=== PATIENT | female | born 1945 | race Caucasian/White ===

== ENCOUNTER → 2016-10-16 | Outpatient (CLI) | payer MEDICARE, MEDICAID ==
[~2016-10-16] MED LIST: ALLO100T OR; AMLO5TAB2 OR; ETAN25IN3 SC; FERR324T11 OR; FOLI5CAP OR; NITR50CA34 OR
[2016-10-16 09:54] LABS: Basophils # (auto) 0.1 uL; Basophils % (auto) 1.1 % (0.0-2.0); Eosinophils # (auto) 0.3 uL; Eosinophils % (auto) 3.7 % (0.0-7.0); Hematocrit 38.3 % (36.0-46.0); Hemoglobin 12.7 g/dL (12.2-16.2); Lymphocytes # (auto) 1.9 uL; Lymphocytes % (auto) 24.9 % (10.0-50.0); Mean Corpuscular Hemoglobin 29.4 pg (28.0-32.0); Mean Corpuscular Hgb Conc. 33.2 g/dL (32.0-36.0); Mean Corpuscular Volume 88.3 fL (80.0-100.0); Mean Platelet Volume 9.4 fL (7.4-10.4); Monocytes # (auto) 0.9 uL; Monocytes % (auto) 11.7 % (0.0-12.0); Neutrophils # (auto) 4.5 uL; Neutrophils % (auto) 58.6 % (37.0-80.0); Platelet Count (auto) 249 10^3/uL (140-450); Red Cell Distribution Width 13.8 % (11.6-16.0); White Blood Cell 7.7 10^3/uL (4.4-10.8)
[2016-10-16 10:10] LABS: Albumin 3.8 g/dL (3.4-5.0); BUN/Creatinine Ratio 25.2; Bilirubin, Total 0.4 mg/dL (0.2-1.0); Calcium 9.2 mg/dL (8.5-10.1); Potassium 3.9 mmol/L (3.5-5.1); Total Protein 7.1 g/dL (6.4-8.2)
== END | disposition home or self-care (01) ==
LOC: LAB 09:27
DX: M06.9 Rheumatoid arthritis, unspecified (principal); N18.3 Chronic kidney disease, stage 3 (moderate); M25.50 Pain in unspecified joint; Z79.899 Other long term (current) drug therapy; I10 Essential (primary) hypertension
CPT/HCPCS: 36415; 80053; 85025; 85652; 86141

== ENCOUNTER → 2016-12-18 | Outpatient (CLI) | payer MEDICARE, MEDICAID ==
[2016-12-18 10:40] LABS: Basophils # (auto) 0 uL; Basophils % (auto) 0.4 % (0.0-2.0); Eosinophils # (auto) 0.3 uL; Eosinophils % (auto) 3.4 % (0.0-7.0); Hematocrit 38.9 % (36.0-46.0); Hemoglobin 12.7 g/dL (12.2-16.2); Lymphocytes # (auto) 1.6 uL; Lymphocytes % (auto) 15.9 % (10.0-50.0); Mean Corpuscular Hemoglobin 29.1 pg (28.0-32.0); Mean Corpuscular Hgb Conc. 32.7 g/dL (32.0-36.0); Mean Platelet Volume 8.8 fL (7.4-10.4); Monocytes # (auto) 1.1 uL; Monocytes % (auto) 10.4 % (0.0-12.0); Neutrophils # (auto) 7.1 uL; Neutrophils % (auto) 69.9 % (37.0-80.0); Platelet Count (auto) 253 10^3/uL (140-450); Red Cell Distribution Width 14.3 % (11.6-16.0); White Blood Cell 10.1 10^3/uL (4.4-10.8)
[2016-12-18 11:11] LABS: Albumin 3.6 g/dL (3.4-5.0); BUN/Creatinine Ratio 19.7; Bilirubin, Total 0.7 mg/dL (0.2-1.0); Potassium 3.6 mmol/L (3.5-5.1); Total Protein 7.2 g/dL (6.4-8.2)
== END | disposition home or self-care (01) ==
LOC: LAB 09:15
DX: M06.9 Rheumatoid arthritis, unspecified (principal); I10 Essential (primary) hypertension; M25.50 Pain in unspecified joint; D64.9 Anemia, unspecified; Z79.899 Other long term (current) drug therapy
CPT/HCPCS: 36415; 80053; 85025; 85652; 86141

== ENCOUNTER → 2017-02-26 | Outpatient (CLI) | payer MEDICARE, MEDICAID ==
[2017-02-26 11:30] LABS: Basophils # (auto) 0.1 uL; Basophils % (auto) 0.5 % (0.0-2.0); CONDITION Y; Eosinophils # (auto) 0.2 uL; Eosinophils % (auto) 1.9 % (0.0-7.0); Hematocrit 37.5 % (36.0-46.0); Hemoglobin 12.5 g/dL (12.2-16.2); Lymphocytes # (auto) 1.4 uL; Lymphocytes % (auto) 12.2 % (10.0-50.0); Mean Corpuscular Hemoglobin 30.4 pg (28.0-32.0); Mean Corpuscular Hgb Conc. 33.2 g/dL (32.0-36.0); Mean Corpuscular Volume 91.4 fL (80.0-100.0); Mean Platelet Volume 9.3 fL (7.4-10.4); Monocytes # (auto) 0.9 uL; Monocytes % (auto) 7.5 % (0.0-12.0); Neutrophils # (auto) 8.9 uL; Neutrophils % (auto) 77.9 % (37.0-80.0); Platelet Count (auto) 226 10^3/uL (140-450); Red Cell Distribution Width 13.7 % (11.6-16.0); White Blood Cell 11.4 10^3/uL (4.4-10.8)
[2017-02-26 11:55] LABS: Albumin 3.6 g/dL (3.4-5.0); BUN/Creatinine Ratio 15.2; Bilirubin, Total 0.5 mg/dL (0.2-1.0); Calcium 8.7 mg/dL (8.5-10.1); Potassium 3.4 mmol/L (3.5-5.1); Total Protein 6.6 g/dL (6.4-8.2)
== END | disposition home or self-care (01) ==
LOC: LAB 11:01
DX: I10 Essential (primary) hypertension (principal); M06.9 Rheumatoid arthritis, unspecified; D64.9 Anemia, unspecified; M25.60 Stiffness of unspecified joint, not elsewhere classified; Z79.899 Other long term (current) drug therapy
CPT/HCPCS: 36415; 80053; 85025; 86141

== ENCOUNTER → 2017-04-29 | Outpatient (CLI) | payer MEDICARE, MEDICAID ==
[2017-04-29 11:49] LABS: Basophils # (auto) 0.1 uL; Basophils % (auto) 0.6 % (0.0-2.0); Eosinophils # (auto) 0.2 uL; Eosinophils % (auto) 1.3 % (0.0-7.0); Hematocrit 37.9 % (36.0-46.0); Hemoglobin 12.6 g/dL (12.2-16.2); Lymphocytes # (auto) 1.3 uL; Mean Corpuscular Hemoglobin 29.9 pg (28.0-32.0); Mean Corpuscular Hgb Conc. 33.2 g/dL (32.0-36.0); Mean Corpuscular Volume 90.1 fL (80.0-100.0); Mean Platelet Volume 8.9 fL (7.4-10.4); Monocytes # (auto) 0.9 uL; Monocytes % (auto) 6.8 % (0.0-12.0); Neutrophils # (auto) 10.6 uL; Neutrophils % (auto) 81.3 % (37.0-80.0); Platelet Count (auto) 220 10^3/uL (140-450); Red Cell Distribution Width 13.3 % (11.6-16.0)
[2017-04-29 12:05] LABS: Albumin 3.6 g/dL (3.4-5.0); Bilirubin, Total 0.3 mg/dL (0.2-1.0); Calcium 9.2 mg/dL (8.5-10.1); Total Protein 7.3 g/dL (6.4-8.2)
== END | disposition home or self-care (01) ==
LOC: LAB 11:24
DX: M06.9 Rheumatoid arthritis, unspecified (principal); M25.50 Pain in unspecified joint; D64.9 Anemia, unspecified; I10 Essential (primary) hypertension; Z79.899 Other long term (current) drug therapy
CPT/HCPCS: 36415; 80053; 85025; 85652; 86141

== ENCOUNTER → 2017-07-01 | Outpatient (CLI) | payer MEDICARE, MEDICAID ==
[2017-07-01 09:59] LABS: Basophils # (auto) 0.1 uL; Basophils % (auto) 0.9 % (0.0-2.0); Eosinophils # (auto) 0.4 uL; Eosinophils % (auto) 4.1 % (0.0-7.0); Hematocrit 38.1 % (36.0-46.0); Hemoglobin 12.7 g/dL (12.2-16.2); Lymphocytes # (auto) 2.3 uL; Lymphocytes % (auto) 26.5 % (10.0-50.0); Mean Corpuscular Hemoglobin 29.8 pg (28.0-32.0); Mean Corpuscular Hgb Conc. 33.3 g/dL (32.0-36.0); Mean Corpuscular Volume 89.7 fL (80.0-100.0); Mean Platelet Volume 9.1 fL (6.9-10.8); Monocytes % (auto) 11.8 % (0.0-12.0); Neutrophils # (auto) 4.9 uL; Neutrophils % (auto) 56.7 % (37.0-80.0); Nucleated Red Blood Cells % 0.1 %; Platelet Count (auto) 245 10^3/uL (140-450); Red Cell Distribution Width 14.8 % (11.8-14.3); White Blood Cell 8.7 10^3/uL (4.4-10.8)
[2017-07-01 10:19] LABS: Albumin 3.7 g/dL (3.4-5.0); BUN/Creatinine Ratio 19.7; Bilirubin, Total 0.3 mg/dL (0.2-1.0); Calcium 9.2 mg/dL (8.5-10.1); Potassium 3.6 mmol/L (3.5-5.1); Total Protein 7.1 g/dL (6.4-8.2)
== END | disposition home or self-care (01) ==
LOC: LAB 09:35
DX: I10 Essential (primary) hypertension (principal); M06.9 Rheumatoid arthritis, unspecified; I70.0 Atherosclerosis of aorta; D64.9 Anemia, unspecified; E78.00 Pure hypercholesterolemia, unspecified; Z79.899 Other long term (current) drug therapy
CPT/HCPCS: 36415; 80053; 85025; 85652; 86141

== ENCOUNTER → 2017-09-02 | Outpatient (CLI) | payer MEDICARE, MEDICAID ==
[2017-09-02 09:30] LABS: Basophils # (auto) 0.1 uL; Basophils % (auto) 0.6 % (0.0-2.0); Eosinophils # (auto) 0.3 uL; Eosinophils % (auto) 3.2 % (0.0-7.0); Hematocrit 36.6 % (36.0-46.0); Hemoglobin 12.1 g/dL (12.2-16.2); Lymphocytes # (auto) 2.2 uL; Lymphocytes % (auto) 22.9 % (10.0-50.0); Mean Corpuscular Hemoglobin 29.6 pg (28.0-32.0); Mean Corpuscular Hgb Conc. 33.1 g/dL (32.0-36.0); Mean Corpuscular Volume 89.5 fL (80.0-100.0); Monocytes # (auto) 1.1 uL; Monocytes % (auto) 10.9 % (0.0-12.0); Neutrophils # (auto) 6.1 uL; Neutrophils % (auto) 62.4 % (37.0-80.0); Platelet Count (auto) 280 10^3/uL (140-450); Red Blood Cells 4.08 10^6/uL (4.0-5.20); Red Cell Distribution Width 13.5 % (11.8-14.3); White Blood Cell 9.8 10^3/uL (4.4-10.8)
[2017-09-02 09:53] LABS: Albumin 3.5 g/dL (3.4-5.0); BUN/Creatinine Ratio 15.9; Bilirubin, Total 0.4 mg/dL (0.2-1.0); Calcium 8.7 mg/dL (8.5-10.1); Potassium 3.8 mmol/L (3.5-5.1); Total Protein 6.9 g/dL (6.4-8.2)
== END | disposition home or self-care (01) ==
LOC: LAB 09:14
PROVIDERS: ATTEND Internal Medicine
DX: M05.9 Rheumatoid arthritis with rheumatoid factor, unspecified (principal)
CPT/HCPCS: 36415; 80053; 85025; 85652

== ENCOUNTER → 2017-10-29 | Outpatient (CLI) | payer MEDICARE, MEDICAID ==
[2017-10-29 11:11] LABS: Basophils # (auto) 0 uL; Basophils % (auto) 0.6 % (0.0-2.0); Eosinophils # (auto) 0.2 uL; Hematocrit 39.2 % (36.0-46.0); Hemoglobin 12.7 g/dL (12.2-16.2); Lymphocytes # (auto) 1.4 uL; Lymphocytes % (auto) 16.8 % (10.0-50.0); Mean Corpuscular Hemoglobin 28.4 pg (28.0-32.0); Mean Corpuscular Hgb Conc. 32.5 g/dL (32.0-36.0); Mean Corpuscular Volume 87.3 fL (80.0-100.0); Monocytes # (auto) 0.8 uL; Monocytes % (auto) 10.3 % (0.0-12.0); Neutrophils # (auto) 5.8 uL; Neutrophils % (auto) 70.3 % (37.0-80.0); Nucleated Red Blood Cells % 0.2 %; Platelet Count (auto) 254 10^3/uL (140-450); Red Blood Cells 4.49 10^6/uL (4.0-5.20); Red Cell Distribution Width 14.5 % (11.8-14.3); White Blood Cell 8.2 10^3/uL (4.4-10.8)
[2017-10-29 11:23] LABS: Albumin 3.6 g/dL (3.4-5.0); BUN/Creatinine Ratio 17.2; Bilirubin, Total 0.4 mg/dL (0.2-1.0); Calcium 8.1 mg/dL (8.5-10.1); Potassium 3.9 mmol/L (3.5-5.1); Total Protein 7.4 g/dL (6.4-8.2)
== END | disposition home or self-care (01) ==
LOC: LAB 10:49
PROVIDERS: ATTEND Internal Medicine Rheumatology
DX: M06.9 Rheumatoid arthritis, unspecified (principal)
CPT/HCPCS: 36415; 80053; 85025

== ENCOUNTER → 2017-12-24 | Outpatient (CLI) | payer MEDICARE, MEDICAID ==
[2017-12-24 10:01] LABS: Basophils # (auto) 0 uL; Basophils % (auto) 0.6 % (0.0-2.0); Eosinophils # (auto) 0.2 uL; Eosinophils % (auto) 3.5 % (0.0-7.0); Hemoglobin 12.3 g/dL (12.2-16.2); Lymphocytes # (auto) 1.9 uL; Lymphocytes % (auto) 26.4 % (10.0-50.0); Mean Corpuscular Hemoglobin 27.9 pg (28.0-32.0); Mean Corpuscular Hgb Conc. 32.3 g/dL (32.0-36.0); Mean Corpuscular Volume 86.4 fL (80.0-100.0); Monocytes # (auto) 0.8 uL; Monocytes % (auto) 11.7 % (0.0-12.0); Neutrophils # (auto) 4.1 uL; Neutrophils % (auto) 57.8 % (37.0-80.0); Platelet Count (auto) 245 10^3/uL (140-450); Red Cell Distribution Width 15.9 % (11.8-14.3); White Blood Cell 7.1 10^3/uL (4.4-10.8)
[2017-12-24 10:15] LABS: Albumin 3.6 g/dL (3.4-5.0); BUN/Creatinine Ratio 17.5; Bilirubin, Total 0.5 mg/dL (0.2-1.0); CRP High Sensitivity 1.22 mg/dL (< 0.3); Calcium 8.8 mg/dL (8.5-10.1); Potassium 3.3 mmol/L (3.5-5.1); Total Protein 7.3 g/dL (6.4-8.2)
== END | disposition home or self-care (01) ==
LOC: LAB 09:16
PROVIDERS: ATTEND Internal Medicine Rheumatology
DX: M05.9 Rheumatoid arthritis with rheumatoid factor, unspecified (principal); I10 Essential (primary) hypertension; E78.00 Pure hypercholesterolemia, unspecified; Z79.899 Other long term (current) drug therapy
CPT/HCPCS: 36415; 80053; 85025; 85652; 86141

== ENCOUNTER → 2018-02-17 | Outpatient (CLI) | payer MEDICARE, MEDICAID ==
[2018-02-17 09:22] LABS: Basophils # (auto) 0 uL; Basophils % (auto) 0.3 % (0.0-2.0); Eosinophils # (auto) 0.3 uL; Eosinophils % (auto) 2.5 % (0.0-7.0); Hematocrit 38.1 % (36.0-46.0); Hemoglobin 12.4 g/dL (12.2-16.2); Lymphocytes # (auto) 1.4 uL; Lymphocytes % (auto) 14.5 % (10.0-50.0); Mean Corpuscular Hemoglobin 27.9 pg (28.0-32.0); Mean Corpuscular Hgb Conc. 32.6 g/dL (32.0-36.0); Mean Corpuscular Volume 85.3 fL (80.0-100.0); Monocytes # (auto) 0.9 uL; Monocytes % (auto) 8.8 % (0.0-12.0); Neutrophils # (auto) 7.3 uL; Neutrophils % (auto) 73.9 % (37.0-80.0); Platelet Count (auto) 235 10^3/uL (140-450); Red Blood Cells 4.47 10^6/uL (4.0-5.20); Red Cell Distribution Width 14.8 % (11.8-14.3); White Blood Cell 9.9 10^3/uL (4.4-10.8)
[2018-02-17 09:47] LABS: Albumin 3.5 g/dL (3.4-5.0); BUN/Creatinine Ratio 14.9; Bilirubin, Total 0.4 mg/dL (0.2-1.0); Calcium 9.2 mg/dL (8.5-10.1); Potassium 3.6 mmol/L (3.5-5.1)
[2018-02-17 14:12] LABS: CRP High Sensitivity 1.23 mg/dL (< 0.3)
== END | disposition home or self-care (01) ==
LOC: LAB 09:10
PROVIDERS: ATTEND Internal Medicine Rheumatology
DX: M05.9 Rheumatoid arthritis with rheumatoid factor, unspecified (principal); I10 Essential (primary) hypertension; E78.00 Pure hypercholesterolemia, unspecified; Z79.899 Other long term (current) drug therapy
CPT/HCPCS: 36415; 80053; 83615; 85025; 85652; 86141

== ENCOUNTER → 2018-10-28 | Outpatient (CLI) | payer MEDICARE, MEDICAID, OTHER ==
[~2018-10-28] MED LIST changes: +AMLO5TAB13 OR; -AMLO5TAB2 OR; +NITR1CAP35 OR; -NITR50CA34 OR
== END | disposition home or self-care (01) ==
LOC: LAB 08:30
PROVIDERS: ATTEND Nurse Practitioner
DX: I12.9 Hypertensive chronic kidney disease with stage 1 through stage 4 chronic kidney disease, or unspecified chronic kidney disease (principal); N18.3 Chronic kidney disease, stage 3 (moderate); M81.0 Age-related osteoporosis without current pathological fracture; K21.9 Gastro-esophageal reflux disease without esophagitis; M06.9 Rheumatoid arthritis, unspecified
CPT/HCPCS: 36415; 80061; 82565; 84520

== ENCOUNTER → 2019-02-22 | Outpatient (CLI) | payer OTHER, MEDICAID ==
[2019-02-22 12:54] LABS: Blood Urea Nitrogen 25 mg/dL (7-18); Chloride 107 mmol/L (98-107); Potassium 3.5 mmol/L (3.5-5.1); Sodium 141 mmol/L (136-145)
[2019-02-22 13:03] LABS: Basophils # (auto) 0.1 uL; Basophils % (auto) 0.8 % (0.0-2.0); Eosinophils # (auto) 0.3 uL; Eosinophils % (auto) 3.2 % (0.0-7.0); Hematocrit 38.2 % (36.0-46.0); Hemoglobin 12.6 g/dL (12.2-16.2); Lymphocytes # (auto) 1.6 uL; Lymphocytes % (auto) 16.9 % (10.0-50.0); Mean Corpuscular Hemoglobin 29.1 pg (28.0-32.0); Mean Corpuscular Volume 88.4 fL (80.0-100.0); Monocytes % (auto) 10.6 % (0.0-12.0); Neutrophils # (auto) 6.3 uL; Neutrophils % (auto) 68.5 % (37.0-80.0); Nucleated Red Blood Cells % 0.1 %; Platelet Count (auto) 215 10^3/uL (140-450); Red Blood Cells 4.32 10^6/uL (4.0-5.20); Red Cell Distribution Width 15.6 % (11.8-14.3); White Blood Cell 9.2 10^3/uL (4.4-10.8)
[2019-02-22 13:35] LABS: Anion Gap 8 (5-15); Carbon Dioxide 26 mmol/L (21-32)
[2019-02-22 13:36] LABS: Alanine Aminotransferase 20 U/L (13-56); Alkaline Phosphatase 52 U/L (45-117); Aspartate Aminotransferase 19 U/L (15-37); BUN/Creatinine Ratio 17.5; Bilirubin, Total 0.4 mg/dL (0.2-1.0); Calcium 8.9 mg/dL (8.5-10.1); GFR African American 46 mL/min; GFR Non-African American 38 mL/min; Glucose 68 mg/dL (74-106)
[2019-02-22 13:37] LABS: Albumin 3.3 g/dL (3.4-5.0); Total Protein 6.8 g/dL (6.4-8.2)
== END | disposition home or self-care (01) ==
LOC: LAB 11:06
PROVIDERS: ATTEND Internal Medicine
DX: M05.9 Rheumatoid arthritis with rheumatoid factor, unspecified (principal)
CPT/HCPCS: 36415; 80053; 85025

== ENCOUNTER → 2019-07-21 | Outpatient (CLI) | payer OTHER, MEDICAID ==
[~2019-07-21] MED LIST changes: -AMLO5TAB13 OR; +AMLO5TAB15 OR
[2019-07-21 11:28] LABS: Basophils # (auto) 0.1 uL; Basophils % (auto) 0.8 % (0.0-2.0); Eosinophils # (auto) 0.3 uL; Eosinophils % (auto) 3.3 % (0.0-7.0); Hematocrit 37.3 % (36.0-46.0); Hemoglobin 12.5 g/dL (12.2-16.2); Lymphocytes # (auto) 1.6 uL; Mean Corpuscular Hemoglobin 29.3 pg (28.0-32.0); Mean Corpuscular Hgb Conc. 33.5 g/dL (32.0-36.0); Mean Corpuscular Volume 87.5 fL (80.0-100.0); Monocytes # (auto) 0.7 uL; Monocytes % (auto) 9.3 % (0.0-12.0); Neutrophils # (auto) 5.3 uL; Neutrophils % (auto) 66.6 % (37.0-80.0); Platelet Count (auto) 255 10^3/uL (140-450); Red Blood Cells 4.26 10^6/uL (4.0-5.20); Red Cell Distribution Width 13.8 % (11.8-14.3)
[2019-07-21 11:50] LABS: Calcium 8.8 mg/dL (8.5-10.1); Potassium 3.6 mmol/L (3.5-5.1)
[2019-07-21 12:03] LABS: Albumin 3.4 g/dL (3.4-5.0); BUN/Creatinine Ratio 14.9; Bilirubin, Total 0.3 mg/dL (0.2-1.0); CRP High Sensitivity 1.02 mg/dL (< 0.3); Total Protein 6.8 g/dL (6.4-8.2)
== END | disposition home or self-care (01) ==
LOC: LAB 11:07
PROVIDERS: ATTEND Internal Medicine Rheumatology
DX: M00.9 Pyogenic arthritis, unspecified (principal); I10 Essential (primary) hypertension
CPT/HCPCS: 36415; 80053; 85025; 85652; 86141

== ENCOUNTER → 2019-11-17 | Outpatient (CLI) | payer OTHER, MEDICAID ==
[2019-11-17 10:16] LABS: Basophils # (auto) 0.1 10 ^3/uL (0-0.2); Basophils % (auto) 0.7 % (0.0-2.0); Eosinophils # (auto) 0.2 10 ^3/uL (0-0.8); Eosinophils % (auto) 2.3 % (0.0-7.0); Hemoglobin 12.5 g/dL (12.2-16.2); Lymphocytes # (auto) 1.8 10 ^3/uL (0.4-5.4); Lymphocytes % (auto) 18.6 % (10.0-50.0); Mean Corpuscular Hemoglobin 29.7 pg (28.0-32.0); Mean Corpuscular Hgb Conc. 33.8 g/dL (32.0-36.0); Mean Corpuscular Volume 87.9 fL (80.0-100.0); Monocytes # (auto) 0.9 10 ^3/uL (0-1.3); Monocytes % (auto) 8.9 % (0.0-12.0); Neutrophils # (auto) 6.7 10 ^3/uL (1.6-8.6); Neutrophils % (auto) 69.5 % (37.0-80.0); Nucleated Red Blood Cells % 0.1 %; Platelet Count (auto) 257 10^3/uL (140-450); Red Blood Cells 4.21 10^6/uL (4.0-5.20); Red Cell Distribution Width 14.8 % (11.8-14.3); White Blood Cell 9.6 10^3/uL (4.4-10.8)
[2019-11-17 10:25] LABS: Albumin 3.4 g/dL (3.4-5.0); Calcium 8.6 mg/dL (8.5-10.1); Potassium 3.6 mmol/L (3.5-5.1)
[2019-11-17 10:34] LABS: BUN/Creatinine Ratio 14.3; Bilirubin, Total 0.6 mg/dL (0.2-1.0); CRP High Sensitivity 0.98 mg/dL (< 0.3); Total Protein 6.8 g/dL (6.4-8.2)
== END | disposition home or self-care (01) ==
LOC: LAB 09:48
PROVIDERS: ATTEND Physician Assistant
DX: M00.9 Pyogenic arthritis, unspecified (principal)
CPT/HCPCS: 36415; 80053; 85025; 85652; 86141

== ENCOUNTER → 2020-01-13 | Outpatient (CLI) | payer OTHER | END | disposition home or self-care (01) | LOC: XYW 07:48 | PROVIDERS: ATTEND Internal Medicine Nephrology | DX: I08.2 Rheumatic disorders of both aortic and tricuspid valves (principal); I50.20 Unspecified systolic (congestive) heart failure | CPT/HCPCS: 93306 ==

== ENCOUNTER → 2020-03-14 | Outpatient (CLI) | payer OTHER ==
[2020-03-14 08:29] LABS: Urine Bacteria NONE SEEN /hpf (None Seen); Urine Blood Negative /uL (Negative); Urine Specific Gravity 1.013 (1.001-1.035); Urine WBC 5 /hpf (0 - 5)
[2020-03-14 08:43] LABS: Protein, Urine 10.5 mg/dL (0.0-11.9)
[2020-03-14 09:01] LABS: Potassium 3.5 mmol/L (3.5-5.1)
[2020-03-14 09:09] LABS: Albumin 3.3 g/dL (3.4-5.0); BUN/Creatinine Ratio 20.7; Bilirubin, Total 0.6 mg/dL (0.2-1.0); Calcium 9.1 mg/dL (8.5-10.1); Magnesium 2.2 mg/dL (1.6-2.6); Phosphorus 3.3 mg/dL (2.5-4.90); Uric Acid 7.5 mg/dL (2.6-6.0)
== END | disposition home or self-care (01) ==
LOC: LAB 07:57
PROVIDERS: ATTEND Internal Medicine Nephrology
DX: I12.9 Hypertensive chronic kidney disease with stage 1 through stage 4 chronic kidney disease, or unspecified chronic kidney disease (principal); N18.3 Chronic kidney disease, stage 3 (moderate)
CPT/HCPCS: 36415; 80053; 81001; 82306; 82570; 83735; 83970; 84100; 84156; 84550

== ENCOUNTER → 2020-03-29 | Outpatient (CLI) | payer OTHER, MEDICAID ==
[2020-03-29 08:52] LABS: Basophils # (auto) 0.1 10 ^3/uL (0-0.2); Basophils % (auto) 0.5 % (0.0-2.0); Eosinophils # (auto) 0.3 10 ^3/uL (0-0.8); Eosinophils % (auto) 2.5 % (0.0-7.0); Hematocrit 38.1 % (36.0-46.0); Hemoglobin 12.2 g/dL (12.2-16.2); Lymphocytes # (auto) 1.7 10 ^3/uL (0.4-5.4); Lymphocytes % (auto) 14.5 % (10.0-50.0); Mean Corpuscular Hgb Conc. 32.1 g/dL (32.0-36.0); Mean Corpuscular Volume 87.1 fL (80.0-100.0); Monocytes % (auto) 8.2 % (0.0-12.0); Neutrophils # (auto) 8.8 10 ^3/uL (1.6-8.6); Neutrophils % (auto) 74.3 % (37.0-80.0); Platelet Count (auto) 267 10^3/uL (140-450); Red Blood Cells 4.37 10^6/uL (4.0-5.20); White Blood Cell 11.8 10^3/uL (4.4-10.8)
[2020-03-29 09:38] LABS: Albumin 3.3 g/dL (3.4-5.0); Calcium 8.8 mg/dL (8.5-10.1); Potassium 3.6 mmol/L (3.5-5.1)
[2020-03-29 09:42] LABS: BUN/Creatinine Ratio 16.1; Bilirubin, Total 0.5 mg/dL (0.2-1.0); Total Protein 6.9 g/dL (6.4-8.2)
== END | disposition home or self-care (01) ==
LOC: LAB 08:39
PROVIDERS: ATTEND Internal Medicine
DX: M81.0 Age-related osteoporosis without current pathological fracture (principal); M06.9 Rheumatoid arthritis, unspecified
CPT/HCPCS: 36415; 80053; 83615; 85025

== ENCOUNTER → 2020-05-16 | Outpatient (CLI) | payer OTHER, MEDICAID ==
[2020-05-16 09:08] LABS: Basophils # (auto) 0.1 10 ^3/uL (0-0.2); Eosinophils # (auto) 0.4 10 ^3/uL (0-0.8); Eosinophils % (auto) 4.8 % (0.0-7.0); Hematocrit 34.3 % (36.0-46.0); Hemoglobin 11.6 g/dL (12.2-16.2); Lymphocytes # (auto) 2.3 10 ^3/uL (0.4-5.4); Lymphocytes % (auto) 26.9 % (10.0-50.0); Mean Corpuscular Hemoglobin 29.1 pg (28.0-32.0); Mean Corpuscular Volume 85.6 fL (80.0-100.0); Monocytes # (auto) 0.9 10 ^3/uL (0-1.3); Monocytes % (auto) 10.8 % (0.0-12.0); Neutrophils # (auto) 4.9 10 ^3/uL (1.6-8.6); Neutrophils % (auto) 56.5 % (37.0-80.0); Nucleated Red Blood Cells % 0.1 %; Platelet Count (auto) 289 10^3/uL (140-450); Red Blood Cells 4.01 10^6/uL (4.0-5.20); Red Cell Distribution Width 14.3 % (11.8-14.3); White Blood Cell 8.7 10^3/uL (4.4-10.8)
[2020-05-16 09:43] LABS: Albumin 3.2 g/dL (3.4-5.0); Potassium 3.4 mmol/L (3.5-5.1)
[2020-05-16 09:47] LABS: BUN/Creatinine Ratio 11.4; Bilirubin, Total 0.3 mg/dL (0.2-1.0); Total Protein 6.5 g/dL (6.4-8.2)
== END | disposition home or self-care (01) ==
LOC: LAB 08:50
PROVIDERS: ATTEND Internal Medicine
DX: M81.0 Age-related osteoporosis without current pathological fracture (principal); M06.9 Rheumatoid arthritis, unspecified
CPT/HCPCS: 36415; 80053; 83615; 85025

== ENCOUNTER → 2020-07-10 | Outpatient (CLI) | payer OTHER, MEDICAID ==
[2020-07-10 09:09] LABS: Basophils # (auto) 0.1 10 ^3/uL (0-0.2); Basophils % (auto) 0.5 % (0.0-2.0); Eosinophils # (auto) 0.2 10 ^3/uL (0-0.8); Eosinophils % (auto) 1.8 % (0.0-7.0); Hematocrit 38.1 % (36.0-46.0); Hemoglobin 12.6 g/dL (12.2-16.2); Lymphocytes # (auto) 1.7 10 ^3/uL (0.4-5.4); Lymphocytes % (auto) 12.5 % (10.0-50.0); Mean Corpuscular Hemoglobin 28.6 pg (28.0-32.0); Mean Corpuscular Hgb Conc. 33.1 g/dL (32.0-36.0); Mean Corpuscular Volume 86.4 fL (80.0-100.0); Monocytes % (auto) 7.2 % (0.0-12.0); Neutrophils # (auto) 10.5 10 ^3/uL (1.6-8.6); Nucleated Red Blood Cells % 0.1 %; Platelet Count (auto) 297 10^3/uL (140-450); Red Blood Cells 4.41 10^6/uL (4.0-5.20); Red Cell Distribution Width 14.7 % (11.8-14.3); White Blood Cell 13.5 10^3/uL (4.4-10.8)
[2020-07-10 09:57] LABS: Albumin 3.6 g/dL (3.4-5.0); BUN/Creatinine Ratio 13.7; Bilirubin, Total 0.7 mg/dL (0.2-1.0); Calcium 9.5 mg/dL (8.5-10.1); Potassium 3.6 mmol/L (3.5-5.1); Total Protein 7.2 g/dL (6.4-8.2)
== END | disposition home or self-care (01) ==
LOC: LAB 08:47
PROVIDERS: ATTEND Physician Assistant
DX: E78.5 Hyperlipidemia, unspecified (principal); I10 Essential (primary) hypertension
CPT/HCPCS: 36415; 80053; 80061; 83615; 85025

== ENCOUNTER → 2020-07-20 | Outpatient (CLI) | payer OTHER, MEDICAID | END | disposition home or self-care (01) | LOC: LAB 12:08 | PROVIDERS: ATTEND Physician Assistant | DX: Z00.00 Encounter for general adult medical examination without abnormal findings (principal); I12.9 Hypertensive chronic kidney disease with stage 1 through stage 4 chronic kidney disease, or unspecified chronic kidney disease; N18.30 Chronic kidney disease, stage 3 unspecified | CPT/HCPCS: 82270 ==

== ENCOUNTER 2020-08-23 08:25 | Day surgery (SDC) | payer OTHER, MEDICAID ==
[2020-08-21 15:01] LABS: INR 1.06 (0.9-1.15); Partial Thromboplastin Time 25.6 sec (23.0-31.2)
[2020-08-21 15:16] LABS: Albumin 3.5 g/dL (3.4-5.0); Calcium 9.2 mg/dL (8.5-10.1); Potassium 3.7 mmol/L (3.5-5.1)
[2020-08-21 15:18] LABS: Basophils # (auto) 0.1 10 ^3/uL (0-0.2); Basophils % (auto) 0.4 % (0.0-2.0); Eosinophils # (auto) 0.1 10 ^3/uL (0-0.8); Eosinophils % (auto) 0.4 % (0.0-7.0); Hematocrit 36.9 % (36.0-46.0); Hemoglobin 12.5 g/dL (12.2-16.2); Lymphocytes % (auto) 7.4 % (10.0-50.0); Mean Corpuscular Hemoglobin 29.1 pg (28.0-32.0); Mean Corpuscular Hgb Conc. 33.8 g/dL (32.0-36.0); Mean Corpuscular Volume 85.9 fL (80.0-100.0); Monocytes # (auto) 0.7 10 ^3/uL (0-1.3); Monocytes % (auto) 5.4 % (0.0-12.0); Neutrophils # (auto) 11.7 10 ^3/uL (1.6-8.6); Neutrophils % (auto) 86.4 % (37.0-80.0); Platelet Count (auto) 362 10^3/uL (140-450); Red Blood Cells 4.29 10^6/uL (4.0-5.20); Red Cell Distribution Width 14.9 % (11.8-14.3); White Blood Cell 13.5 10^3/uL (4.4-10.8)
[2020-08-21 15:19] LABS: BUN/Creatinine Ratio 19.7; Bilirubin, Total 0.6 mg/dL (0.2-1.0); Total Protein 7.7 g/dL (6.4-8.2)
[~2020-08-23] VITALS: Ht 149.9 cm; Wt 70.3 kg
[~2020-08-23 08:25] MED LIST changes: +ACET-1803 PO; -ALLO100T OR; -AMLO5TAB15 OR; +ASPI-543 PO; +BUPIVACAINE 0.25% INJ 50ML VIAL ONE; +DENO60SO SC; +ESCI5TAB PO; -ETAN25IN3 SC; -FERR324T11 OR; +FOLI1TAB6 PO; -FOLI5CAP OR; +GOLI50SO IV; +HYDR-4833 PO; +HYDR12.56 PO; +MULT-908 PO; -NITR1CAP35 OR; +PRE5T PO
[2020-08-23] MEDS ORDERED: ceFAZolin 1GM/50ML 100 ML IV ONE (09:15)
[2020-08-23 09:16] LABS: Urine Bacteria FEW /hpf (None Seen); Urine Blood Negative /uL (Negative); Urine Specific Gravity 1.021 (1.001-1.035); Urine WBC 5 /hpf (0 - 5)
[2020-08-23] MEDS ORDERED: MIDAZOLAM HCL 1MG/1ML-2 ML VIAL ONE (09:31)
[2020-08-23] MEDS ORDERED: METOCLOPRAMIDE HCL 5MG/ml INJ 2ml VIAL ONE (09:32)
[2020-08-23] MEDS ORDERED: PROPOFOL 10 MG/ML 20 ML IV ONE (09:32)
[2020-08-23] MEDS ORDERED: ROCURONIUM 10MG/ML 10ML VIAL IV ONE (09:33)
[2020-08-23] MEDS ORDERED: HYDROCORTISONE SOD SUCC 100 MG/2ML INJ VIAL ONE (09:35)
[2020-08-23] MEDS ORDERED: fentaNYL CITRATE 100 MCG/2 ML VL ONE (09:59)
[2020-08-23] MEDS ORDERED: HYDROmorphone HCL 2 MG/ML VL IV PRN ×2 (10:15)
[2020-08-23] MEDS ORDERED: NALOXONE HCL 0.4 MG/ML VIAL IV PRN (10:15)
[2020-08-23] MEDS ORDERED: ONDANSETRON HCL 4 MG/2 ML VIAL IV PRN (10:15)
[2020-08-23] MEDS ORDERED: GLYCOPYRROLATE 0.2 MG/ML 1ML VIAL ONE (10:36)
[2020-08-23] MEDS ORDERED: NEOSTIGMINE 1 MG/ML INJ (10mg/10ML VIAL) ONE (10:36)
[2020-08-23 11:40] VITALS: BP 153/60
== END 2020-08-23 12:10 | disposition home or self-care (01) ==
LOC: SUR 08:25
PROVIDERS: ATTEND Orthopaedic Surgery Adult Reconstructive Orthopaedic Surgery
DX: S82.491A Other fracture of shaft of right fibula, initial encounter for closed fracture (principal); G47.33 Obstructive sleep apnea (adult) (pediatric); K21.9 Gastro-esophageal reflux disease without esophagitis; E66.9 Obesity, unspecified; Z68.32 Body mass index [BMI] 32.0-32.9, adult; Z87.891 Personal history of nicotine dependence; G89.29 Other chronic pain; Z88.6 Allergy status to analgesic agent; Z96.653 Presence of artificial knee joint, bilateral; Z20.828 Contact with and (suspected) exposure to other viral communicable diseases; Z98.890 Other specified postprocedural states; Z79.82 Long term (current) use of aspirin; X58.XXXA Exposure to other specified factors, initial encounter; Y93.89 Activity, other specified; Y92.89 Other specified places as the place of occurrence of the external cause; Y99.8 Other external cause status
CPT/HCPCS: 27828; 36415; 73590; 80053; 81001; 85025; 85610; 85730; C1713; J0690; J1720; J2250; J2704; J2765; J3010; J3490; U0003; 76000

== ENCOUNTER → 2020-09-29 | Outpatient (CLI) | payer OTHER, MEDICAID ==
[~2020-09-29] MED LIST changes: -BUPIVACAINE 0.25% INJ 50ML VIAL ONE
[2020-09-29 10:04] LABS: Basophils # (auto) 0.1 10 ^3/uL (0-0.2); Basophils % (auto) 0.6 % (0.0-2.0); Eosinophils # (auto) 0.3 10 ^3/uL (0-0.8); Eosinophils % (auto) 2.9 % (0.0-7.0); Hematocrit 36.7 % (36.0-46.0); Hemoglobin 12.1 g/dL (12.2-16.2); Lymphocytes # (auto) 1.8 10 ^3/uL (0.4-5.4); Lymphocytes % (auto) 17.1 % (10.0-50.0); Mean Corpuscular Hemoglobin 28.6 pg (28.0-32.0); Mean Corpuscular Hgb Conc. 33.1 g/dL (32.0-36.0); Mean Corpuscular Volume 86.2 fL (80.0-100.0); Monocytes % (auto) 9.5 % (0.0-12.0); Neutrophils # (auto) 7.5 10 ^3/uL (1.6-8.6); Neutrophils % (auto) 69.9 % (37.0-80.0); Nucleated Red Blood Cells % 0.1 %; Platelet Count (auto) 272 10^3/uL (140-450); Red Blood Cells 4.25 10^6/uL (4.0-5.20); Red Cell Distribution Width 15.3 % (11.8-14.3); White Blood Cell 10.7 10^3/uL (4.4-10.8)
[2020-09-29 10:48] LABS: Albumin 3.4 g/dL (3.4-5.0); Calcium 8.8 mg/dL (8.5-10.1); Potassium 3.4 mmol/L (3.5-5.1)
[2020-09-29 10:52] LABS: BUN/Creatinine Ratio 11.1; Bilirubin, Total 0.4 mg/dL (0.2-1.0); Total Protein 7.1 g/dL (6.4-8.2)
== END | disposition home or self-care (01) ==
LOC: LAB 09:43
PROVIDERS: ATTEND Internal Medicine
DX: M81.0 Age-related osteoporosis without current pathological fracture (principal); M06.9 Rheumatoid arthritis, unspecified
CPT/HCPCS: 36415; 80053; 83615; 85025

== ENCOUNTER → 2020-10-09 | Outpatient (CLI) | payer OTHER, MEDICAID ==
[2020-10-09 15:12] LABS: Basophils # (auto) 0 10 ^3/uL (0-0.2); Basophils % (auto) 0.3 % (0.0-2.0); Eosinophils # (auto) 0.1 10 ^3/uL (0-0.8); Eosinophils % (auto) 0.5 % (0.0-7.0); Lymphocytes # (auto) 1.1 10 ^3/uL (0.4-5.4); Lymphocytes % (auto) 9.6 % (10.0-50.0); Mean Corpuscular Hemoglobin 28.5 pg (28.0-32.0); Mean Corpuscular Hgb Conc. 33.3 g/dL (32.0-36.0); Mean Corpuscular Volume 85.8 fL (80.0-100.0); Monocytes # (auto) 0.7 10 ^3/uL (0-1.3); Monocytes % (auto) 5.4 % (0.0-12.0); Neutrophils # (auto) 10.1 10 ^3/uL (1.6-8.6); Neutrophils % (auto) 84.2 % (37.0-80.0); Nucleated Red Blood Cells % 0.1 %; Platelet Count (auto) 276 10^3/uL (140-450); Red Cell Distribution Width 14.9 % (11.8-14.3)
[2020-10-09 15:45] LABS: Albumin 3.4 g/dL (3.4-5.0); Calcium 9.1 mg/dL (8.5-10.1); Potassium 3.9 mmol/L (3.5-5.1)
[2020-10-09 15:49] LABS: BUN/Creatinine Ratio 15.6; Bilirubin, Total 0.4 mg/dL (0.2-1.0); Total Protein 7.2 g/dL (6.4-8.2)
== END | disposition home or self-care (01) ==
LOC: LAB 13:49
PROVIDERS: ATTEND Internal Medicine
DX: M81.0 Age-related osteoporosis without current pathological fracture (principal); M06.9 Rheumatoid arthritis, unspecified
CPT/HCPCS: 36415; 80053; 83615; 85025

== ENCOUNTER → 2020-11-29 | Outpatient (CLI) | payer OTHER, MEDICAID ==
[2020-11-29 10:33] LABS: Basophils # (auto) 0.1 10 ^3/uL (0-0.2); Basophils % (auto) 0.6 % (0.0-2.0); Eosinophils # (auto) 0.5 10 ^3/uL (0-0.8); Eosinophils % (auto) 3.6 % (0.0-7.0); Hematocrit 36.6 % (36.0-46.0); Hemoglobin 12.2 g/dL (12.2-16.2); Lymphocytes # (auto) 1.8 10 ^3/uL (0.4-5.4); Lymphocytes % (auto) 13.8 % (10.0-50.0); Mean Corpuscular Hemoglobin 28.6 pg (28.0-32.0); Mean Corpuscular Hgb Conc. 33.3 g/dL (32.0-36.0); Mean Corpuscular Volume 85.9 fL (80.0-100.0); Monocytes # (auto) 1.1 10 ^3/uL (0-1.3); Monocytes % (auto) 8.7 % (0.0-12.0); Neutrophils # (auto) 9.6 10 ^3/uL (1.6-8.6); Neutrophils % (auto) 73.3 % (37.0-80.0); Platelet Count (auto) 267 10^3/uL (140-450); Red Blood Cells 4.26 10^6/uL (4.0-5.20); Red Cell Distribution Width 15.1 % (11.8-14.3)
[2020-11-29 11:23] LABS: Albumin 3.4 g/dL (3.4-5.0); Calcium 9.8 mg/dL (8.5-10.1); Potassium 3.6 mmol/L (3.5-5.1)
[2020-11-29 11:28] LABS: BUN/Creatinine Ratio 11.8; Bilirubin, Total 0.4 mg/dL (0.2-1.0); Total Protein 6.8 g/dL (6.4-8.2)
== END | disposition home or self-care (01) ==
LOC: LAB 10:20
PROVIDERS: ATTEND Internal Medicine
DX: M81.0 Age-related osteoporosis without current pathological fracture (principal); M06.9 Rheumatoid arthritis, unspecified
CPT/HCPCS: 36415; 80053; 83615; 85025

== ENCOUNTER → 2021-03-14 | Outpatient (CLI) | payer OTHER, MEDICAID ==
[2021-03-14 10:12] LABS: Basophils # (auto) 0.1 10 ^3/uL (0-0.2); Basophils % (auto) 1.3 % (0.0-2.0); Eosinophils # (auto) 0.5 10 ^3/uL (0-0.8); Eosinophils % (auto) 4.6 % (0.0-7.0); Hematocrit 34.1 % (36.0-46.0); Hemoglobin 11.7 g/dL (12.2-16.2); Lymphocytes # (auto) 2.8 10 ^3/uL (0.4-5.4); Lymphocytes % (auto) 25.8 % (10.0-50.0); Mean Corpuscular Hemoglobin 29.5 pg (28.0-32.0); Mean Corpuscular Hgb Conc. 34.3 g/dL (32.0-36.0); Mean Corpuscular Volume 86.2 fL (80.0-100.0); Monocytes % (auto) 8.6 % (0.0-12.0); Neutrophils # (auto) 6.6 10 ^3/uL (1.6-8.6); Neutrophils % (auto) 59.7 % (37.0-80.0); Red Blood Cells 3.95 10^6/uL (4.0-5.20); Red Cell Distribution Width 14.3 % (11.8-14.3)
[2021-03-14 10:37] LABS: Albumin 3.4 g/dL (3.4-5.0); Calcium 8.7 mg/dL (8.5-10.1); Potassium 3.5 mmol/L (3.5-5.1)
[2021-03-14 10:40] LABS: BUN/Creatinine Ratio 16.7; Bilirubin, Total 0.5 mg/dL (0.2-1.0); Total Protein 7.2 g/dL (6.4-8.2)
== END | disposition home or self-care (01) ==
LOC: LAB 09:54
PROVIDERS: ATTEND Internal Medicine
DX: M81.0 Age-related osteoporosis without current pathological fracture (principal); M06.9 Rheumatoid arthritis, unspecified
CPT/HCPCS: 36415; 80053; 83615; 85025

== ENCOUNTER → 2021-08-22 | Outpatient (CLI) | payer OTHER, MEDICAID ==
[2021-08-22 10:21] LABS: Basophils # (auto) 0 10 ^3/uL (0-0.2); Basophils % (auto) 0.5 % (0.0-2.0); Eosinophils # (auto) 0.4 10 ^3/uL (0-0.8); Eosinophils % (auto) 4.5 % (0.0-7.0); Hematocrit 38.2 % (36.0-46.0); Hemoglobin 12.5 g/dL (12.2-16.2); Lymphocytes % (auto) 35.3 % (10.0-50.0); Mean Corpuscular Hemoglobin 27.4 pg (28.0-32.0); Mean Corpuscular Hgb Conc. 32.6 g/dL (32.0-36.0); Mean Corpuscular Volume 83.8 fL (80.0-100.0); Monocytes # (auto) 0.8 10 ^3/uL (0-1.3); Monocytes % (auto) 9.7 % (0.0-12.0); Neutrophils # (auto) 4.3 10 ^3/uL (1.6-8.6); Nucleated Red Blood Cells % 0.3 %; Red Blood Cells 4.56 10^6/uL (4.0-5.20); Red Cell Distribution Width 16.1 % (11.8-14.3); White Blood Cell 8.6 10^3/uL (4.4-10.8)
[2021-08-22 11:07] LABS: Potassium 4.1 mmol/L (3.5-5.1)
[2021-08-22 11:14] LABS: Albumin 3.7 g/dL (3.4-5.0); BUN/Creatinine Ratio 15.4; Bilirubin, Total 0.6 mg/dL (0.2-1.0); Magnesium 2.8 mg/dL (1.6-2.6); Phosphorus 3.4 mg/dL (2.5-4.90); Total Protein 7.2 g/dL (6.4-8.2)
== END | disposition home or self-care (01) ==
LOC: LAB 09:21
PROVIDERS: ATTEND Internal Medicine Nephrology
DX: N18.32 Chronic kidney disease, stage 3b (principal)
CPT/HCPCS: 36415; 80053; 83615; 83735; 84100; 85025

== ENCOUNTER → 2021-09-25 | Outpatient (CLI) | payer OTHER, MEDICAID ==
[2021-09-25 10:40] LABS: Basophils # (auto) 0.1 10 ^3/uL (0-0.2); Basophils % (auto) 0.6 % (0.0-2.0); Eosinophils # (auto) 0.1 10 ^3/uL (0-0.8); Eosinophils % (auto) 1.6 % (0.0-7.0); Hematocrit 36.5 % (36.0-46.0); Hemoglobin 12.3 g/dL (12.2-16.2); Lymphocytes # (auto) 1.3 10 ^3/uL (0.4-5.4); Lymphocytes % (auto) 14.9 % (10.0-50.0); Mean Corpuscular Hemoglobin 28.7 pg (28.0-32.0); Mean Corpuscular Hgb Conc. 33.6 g/dL (32.0-36.0); Mean Corpuscular Volume 85.2 fL (80.0-100.0); Monocytes # (auto) 0.6 10 ^3/uL (0-1.3); Monocytes % (auto) 7.1 % (0.0-12.0); Neutrophils # (auto) 6.7 10 ^3/uL (1.6-8.6); Neutrophils % (auto) 75.8 % (37.0-80.0); Nucleated Red Blood Cells % 0.1 %; Red Blood Cells 4.29 10^6/uL (4.0-5.20); Red Cell Distribution Width 15.6 % (11.8-14.3); White Blood Cell 8.8 10^3/uL (4.4-10.8)
[2021-09-25 14:27] LABS: Albumin 3.6 g/dL (3.4-5.0); Calcium 9.6 mg/dL (8.5-10.1); Potassium 3.8 mmol/L (3.5-5.1)
[2021-09-25 14:30] LABS: BUN/Creatinine Ratio 16.4; Bilirubin, Total 0.4 mg/dL (0.2-1.0)
== END | disposition home or self-care (01) ==
LOC: LAB 09:54
PROVIDERS: ATTEND Internal Medicine
DX: M81.0 Age-related osteoporosis without current pathological fracture (principal); M06.9 Rheumatoid arthritis, unspecified
CPT/HCPCS: 36415; 80053; 83615; 85025

== ENCOUNTER → 2022-04-24 | Outpatient (CLI) | payer OTHER, MEDICAID ==
[2022-04-24 10:28] LABS: Basophils # (auto) 0.1 10 ^3/uL (0-0.2); Basophils % (auto) 0.6 % (0.0-2.0); Eosinophils # (auto) 0.2 10 ^3/uL (0-0.8); Hematocrit 37.9 % (36.0-46.0); Hemoglobin 12.4 g/dL (12.2-16.2); Lymphocytes # (auto) 1.8 10 ^3/uL (0.4-5.4); Lymphocytes % (auto) 16.5 % (10.0-50.0); Mean Corpuscular Hemoglobin 27.6 pg (28.0-32.0); Mean Corpuscular Hgb Conc. 32.7 g/dL (32.0-36.0); Mean Corpuscular Volume 84.5 fL (80.0-100.0); Monocytes # (auto) 1.2 10 ^3/uL (0-1.3); Monocytes % (auto) 10.7 % (0.0-12.0); Neutrophils # (auto) 7.6 10 ^3/uL (1.6-8.6); Neutrophils % (auto) 70.2 % (37.0-80.0); Red Blood Cells 4.49 10^6/uL (4.0-5.20); Red Cell Distribution Width 14.5 % (11.8-14.3); White Blood Cell 10.8 10^3/uL (4.4-10.8)
[2022-04-24 10:54] LABS: Albumin 3.5 g/dL (3.4-5.0); Magnesium 1.8 mg/dL (1.6-2.6); Potassium 3.3 mmol/L (3.5-5.1)
[2022-04-24 10:58] LABS: BUN/Creatinine Ratio 10.9; Bilirubin, Total 0.5 mg/dL (0.2-1.0); Total Protein 7.1 g/dL (6.4-8.2)
== END | disposition home or self-care (01) ==
LOC: LAB 09:57
PROVIDERS: ATTEND Internal Medicine
DX: M81.0 Age-related osteoporosis without current pathological fracture (principal); M06.9 Rheumatoid arthritis, unspecified
CPT/HCPCS: 36415; 80053; 82306; 83615; 83735; 85025

== ENCOUNTER 2022-04-29 15:48 | Inpatient (IN) | payer OTHER, MEDICAID ==
[~2022-04-29] VITALS: Ht 175.3 cm; Wt 77.4 kg
[2022-04-29 16:32] LABS: Basophils # (auto) 0.1 10 ^3/uL (0-0.2); Basophils % (auto) 0.3 % (0.0-2.0); Eosinophils # (auto) 0.3 10 ^3/uL (0-0.8); Eosinophils % (auto) 1.3 % (0.0-7.0); Hemoglobin 13.2 g/dL (12.2-16.2); Lymphocytes % (auto) 4.2 % (10.0-50.0); Mean Corpuscular Hemoglobin 27.2 pg (28.0-32.0); Mean Corpuscular Hgb Conc. 33.1 g/dL (32.0-36.0); Monocytes # (auto) 1.4 10 ^3/uL (0-1.3); Monocytes % (auto) 5.6 % (0.0-12.0); Neutrophils # (auto) 21.8 10 ^3/uL (1.6-8.6); Neutrophils % (auto) 88.6 % (37.0-80.0); Red Blood Cells 4.87 10^6/uL (4.0-5.20); Red Cell Distribution Width 14.7 % (11.8-14.3); White Blood Cell 24.6 10^3/uL (4.4-10.8)
[2022-04-29 16:51] LABS: Albumin 2.9 g/dL (3.4-5.0); BUN/Creatinine Ratio 15.8; Calcium 8.8 mg/dL (8.5-10.1)
[2022-04-29 16:54] LABS: Bilirubin, Total 2.4 mg/dL (0.2-1.0); Total Protein 7.7 g/dL (6.4-8.2)
[2022-04-29 16:58] LABS: Potassium 2.9 mmol/L (3.5-5.1)
[2022-04-29] MEDS ORDERED: AZITHROMYCIN 500MG/ 250ML 250 ML IV ONE (17:30)
[2022-04-29] MEDS ORDERED: ENOXAPARIN SOD 80 MG/0.8ML SYRINGE SC ONE (17:30)
[2022-04-29] MEDS ORDERED: POTASSIUM CHL 20MEQ/100ML 100 ML IV ONE (17:30)
[2022-04-29] MEDS ORDERED: cefTRIAXone 1GM/50ML D5W 50 ML IV ONE (17:30)
[2022-04-29] MEDS ORDERED: MORPHINE SULFATE INJ 2 MG/ml SYRG IV PRN (19:00)
[2022-04-29] MEDS ORDERED: NITROGLYCERIN 0.4 MG SL TAB SL PRN (19:00)
[2022-04-29] MEDS ORDERED: ACETAMINOPHEN 325 MG TAB PO PRN (19:00)
[2022-04-29] MEDS: ONDANSETRON HCL 4 MG/2 ML VIAL IV PRN (19:58)
[2022-04-29] MEDS: ATORVASTATIN 20 MG TAB PO SCH (22:01)
[2022-04-30 04:51] LABS: Basophils # (auto) 0 10 ^3/uL (0-0.2); Basophils % (auto) 0.2 % (0.0-2.0); Eosinophils # (auto) 0.1 10 ^3/uL (0-0.8); Eosinophils % (auto) 0.6 % (0.0-7.0); Hematocrit 34.7 % (36.0-46.0); Hemoglobin 11.5 g/dL (12.2-16.2); Lymphocytes # (auto) 1.3 10 ^3/uL (0.4-5.4); Lymphocytes % (auto) 6.8 % (10.0-50.0); Mean Corpuscular Hemoglobin 27.3 pg (28.0-32.0); Mean Corpuscular Volume 82.7 fL (80.0-100.0); Monocytes # (auto) 1.6 10 ^3/uL (0-1.3); Monocytes % (auto) 8.6 % (0.0-12.0); Neutrophils # (auto) 15.9 10 ^3/uL (1.6-8.6); Neutrophils % (auto) 83.8 % (37.0-80.0); Red Cell Distribution Width 14.4 % (11.8-14.3); White Blood Cell 18.9 10^3/uL (4.4-10.8)
[2022-04-30 05:23] LABS: Albumin 2.4 g/dL (3.4-5.0); Bilirubin, Total 1.5 mg/dL (0.2-1.0); Calcium 7.8 mg/dL (8.5-10.1); Total Protein 5.9 g/dL (6.4-8.2)
[2022-04-30 05:36] LABS: Potassium 2.9 mmol/L (3.5-5.1)
[2022-04-30] MEDS: POTASSIUM CHL 20MEQ/100ML 100 ML IV SCH ×2 (06:36→08:41)
[2022-04-30] MEDS: cefTRIAXone 1GM/50ML D5W 50 ML IV SCH (08:40)
[2022-04-30] MEDS ORDERED: ASPirin-EC 81 mg tab PO SCH (10:00)
[2022-04-30] MEDS: CITALOPRAM HYDROBR 20 MG TAB PO SCH (10:07)
[2022-04-30] MEDS: SODIUM CHLORIDE 0.9% 1,000 ML IV SCH (11:16)
[2022-04-30 11:43] LABS: Magnesium 1.6 mg/dL (1.6-2.6); Phosphorus 4.4 mg/dL (2.5-4.90)
[2022-04-30 12:09] LABS: Urine Bacteria MOD /hpf (None Seen); Urine Blood 3+ /uL (Negative); Urine Mucus FEW (None Seen); Urine Specific Gravity 1.018 (1.001-1.035); Urine WBC 93 /hpf (0 - 5); Urine WBC Clumps PRESENT /hpf (None Seen)
[2022-04-30 12:52] LABS: Protein, Urine 139.3 mg/dL (0.0-11.9)
[2022-04-30] MEDS ORDERED: metroNIDAZOLE 500MG/100ML 100 ML IV ONE (15:15)
[2022-04-30] MEDS ORDERED: DEXTROSE (50%) 50ML SYRG IV PRN (15:30)
[2022-04-30 16:17] VITALS: BP 105/46
[2022-04-30 17:19] VITALS: BP 105/46
[2022-04-30 17:26] LABS: Potassium 3.4 mmol/L (3.5-5.1)
[2022-04-30 17:27] LABS: BUN/Creatinine Ratio 22.5; Calcium 7.7 mg/dL (8.5-10.1)
[2022-04-30] MEDS: HYDROcodone-ACET 5/325MG TAB PO PRN (17:46)
[2022-04-30] MEDS: ONDANSETRON HCL 4 MG/2 ML VIAL IV PRN (17:46)
[2022-04-30] MEDS: InsuLIN REG 1unit/0.01ml Soln (100units/ml) SC SCH (18:00)
[2022-04-30] MEDS: ACCU-CHEK COMFORT CURVE STRIP VI SCH (18:06)
[2022-04-30] MEDS: ATORVASTATIN 20 MG TAB PO SCH (21:53)
[2022-04-30] MEDS: metroNIDAZOLE 500MG/100ML 100 ML IV SCH (21:54)
[2022-04-30 22:00] VITALS: BP 97/56
[2022-05-01] MEDS: ACCU-CHEK COMFORT CURVE STRIP VI SCH ×4 (00:12→18:07)
[2022-05-01 05:00] VITALS: BP 104/63
[2022-05-01] MEDS: InsuLIN REG 1unit/0.01ml Soln (100units/ml) SC SCH ×4 (06:00→18:11)
[2022-05-01] MEDS: SODIUM CHLORIDE 0.9% 1,000 ML IV SCH ×3 (06:18→16:42)
[2022-05-01] MEDS: metroNIDAZOLE 500MG/100ML 100 ML IV SCH ×3 (06:25→22:08)
[2022-05-01 07:42] LABS: Basophils # (auto) 0 10 ^3/uL (0-0.2); Basophils % (auto) 0.1 % (0.0-2.0); Eosinophils # (auto) 0.1 10 ^3/uL (0-0.8); Eosinophils % (auto) 0.5 % (0.0-7.0); Hematocrit 30.3 % (36.0-46.0); Hemoglobin 10.1 g/dL (12.2-16.2); Lymphocytes # (auto) 0.7 10 ^3/uL (0.4-5.4); Lymphocytes % (auto) 4.2 % (10.0-50.0); Mean Corpuscular Hemoglobin 27.7 pg (28.0-32.0); Mean Corpuscular Hgb Conc. 33.3 g/dL (32.0-36.0); Mean Corpuscular Volume 83.2 fL (80.0-100.0); Monocytes # (auto) 1.7 10 ^3/uL (0-1.3); Neutrophils # (auto) 14.2 10 ^3/uL (1.6-8.6); Neutrophils % (auto) 85.2 % (37.0-80.0); Red Blood Cells 3.64 10^6/uL (4.0-5.20); Red Cell Distribution Width 14.2 % (11.8-14.3); White Blood Cell 16.6 10^3/uL (4.4-10.8)
[2022-05-01 07:58] LABS: Calcium 7.1 mg/dL (8.5-10.1); Potassium 3.4 mmol/L (3.5-5.1)
[2022-05-01 08:03] LABS: BUN/Creatinine Ratio 23.7; Total Protein 5.4 g/dL (6.4-8.2)
[2022-05-01] MEDS: CITALOPRAM HYDROBR 20 MG TAB PO SCH (09:02)
[2022-05-01] MEDS: cefTRIAXone 1GM/50ML D5W 50 ML IV SCH (09:02)
[2022-05-01 09:03] VITALS: BP 98/52
[2022-05-01] MEDS: POTASSIUM CHL 20MEQ/100ML 100 ML IV SCH ×2 (12:02→16:42)
[2022-05-01] MEDS: ONDANSETRON HCL 4 MG/2 ML VIAL IV PRN ×2 (12:03→19:47)
[2022-05-01 13:00] VITALS: BP 116/73
[2022-05-01] MEDS ORDERED: POTASSIUM CHL 20MEQ/100ML 100 ML IV ONE (16:41)
[2022-05-01 16:52] VITALS: BP 96/50
[2022-05-01 22:00] VITALS: BP 108/62
[2022-05-01] MEDS: ATORVASTATIN 20 MG TAB PO SCH (22:08)
[2022-05-02] MEDS: SODIUM CHLORIDE 0.9% 1,000 ML IV SCH ×3 (03:37→23:56)
[2022-05-02 05:11] VITALS: BP 107/60
[2022-05-02] MEDS: InsuLIN REG 1unit/0.01ml Soln (100units/ml) SC SCH ×5 (05:11→23:56)
[2022-05-02] MEDS: ACCU-CHEK COMFORT CURVE STRIP VI SCH ×5 (05:11→23:57)
[2022-05-02] MEDS: metroNIDAZOLE 500MG/100ML 100 ML IV SCH ×3 (05:12→21:55)
[2022-05-02] MEDS ORDERED: MAGNESIUM SULFATE 1GM/100ML 100 ML IV ONE (08:30)
[2022-05-02 09:00] VITALS: BP 115/71
[2022-05-02] MEDS: CITALOPRAM HYDROBR 20 MG TAB PO SCH (09:02)
[2022-05-02] MEDS: cefTRIAXone 1GM/50ML D5W 50 ML IV SCH (09:02)
[2022-05-02 13:00] VITALS: BP 111/62
[2022-05-02] MEDS: HYDROcodone-ACET 5/325MG TAB PO PRN ×2 (15:01→20:26)
[2022-05-02 17:00] VITALS: BP 106/65
[2022-05-02 21:32] VITALS: BP 112/65
[2022-05-02] MEDS: ATORVASTATIN 20 MG TAB PO SCH (21:55)
[2022-05-02 23:20] LABS: INR 1.44 (0.9-1.15); Partial Thromboplastin Time 36.5 sec (24.6-33.4)
[2022-05-03 05:02] VITALS: BP 124/71
[2022-05-03] MEDS: InsuLIN REG 1unit/0.01ml Soln (100units/ml) SC SCH ×4 (06:00→23:46)
[2022-05-03] MEDS: ACCU-CHEK COMFORT CURVE STRIP VI SCH ×4 (06:36→23:45)
[2022-05-03] MEDS: metroNIDAZOLE 500MG/100ML 100 ML IV SCH ×3 (06:36→21:52)
[2022-05-03 06:55] LABS: Basophils # (auto) 0 10 ^3/uL (0-0.2); Basophils % (auto) 0.3 % (0.0-2.0); Eosinophils # (auto) 0.2 10 ^3/uL (0-0.8); Eosinophils % (auto) 1.3 % (0.0-7.0); Hematocrit 31.2 % (36.0-46.0); Hemoglobin 10.2 g/dL (12.2-16.2); Lymphocytes # (auto) 1.2 10 ^3/uL (0.4-5.4); Lymphocytes % (auto) 8.9 % (10.0-50.0); Mean Corpuscular Hemoglobin 27.7 pg (28.0-32.0); Mean Corpuscular Hgb Conc. 32.6 g/dL (32.0-36.0); Mean Corpuscular Volume 85.1 fL (80.0-100.0); Monocytes # (auto) 1.5 10 ^3/uL (0-1.3); Neutrophils # (auto) 10.6 10 ^3/uL (1.6-8.6); Neutrophils % (auto) 78.5 % (37.0-80.0); Red Blood Cells 3.66 10^6/uL (4.0-5.20); Red Cell Distribution Width 14.7 % (11.8-14.3); White Blood Cell 13.6 10^3/uL (4.4-10.8)
[2022-05-03 06:58] LABS: Albumin 1.7 g/dL (3.4-5.0); BUN/Creatinine Ratio 22.8; Calcium 7.1 mg/dL (8.5-10.1)
[2022-05-03 07:01] LABS: Bilirubin, Total 0.4 mg/dL (0.2-1.0); Total Protein 5.7 g/dL (6.4-8.2)
[2022-05-03] MEDS: SODIUM CHLORIDE 0.9% 1,000 ML IV SCH ×2 (08:24→21:52)
[2022-05-03] MEDS: cefTRIAXone 1GM/50ML D5W 50 ML IV SCH (08:25)
[2022-05-03 09:00] VITALS: BP 105/58
[2022-05-03] MEDS: CITALOPRAM HYDROBR 20 MG TAB PO SCH (10:14)
[2022-05-03 11:04] LABS: Cholesterol 74 mg/dL (< 200)
[2022-05-03 11:07] LABS: HDL Cholesterol 19 mg/dL (40-59); LDL Cholesterol 36 mg/dL (< 100); Triglycerides 60 mg/dL (< 150)
[2022-05-03 13:00] VITALS: BP 110/61
[2022-05-03] MEDS ORDERED: ONDANSETRON HCL 4 MG/2 ML VIAL ONE (13:05)
[2022-05-03] MEDS ORDERED: MEPERIDINE HCL (25 MG/ML) 1ML VIAL ONE (13:05)
[2022-05-03] MEDS ORDERED: NEOSTIGMINE 1 MG/ML INJ (10mg/10ML VIAL) ONE (13:05)
[2022-05-03] MEDS ORDERED: fentaNYL CITRATE 100 MCG/2 ML VL ONE (13:05)
[2022-05-03] MEDS ORDERED: SODIUM CHLORIDE LOCK 10 ML ONE (13:05)
[2022-05-03] MEDS ORDERED: GLYCOPYRROLATE 0.2 MG/ML 1ML VIAL ONE (13:05)
[2022-05-03] MEDS ORDERED: DexAMETHasone SOD PHOS 10MG/1ML VIAL INJ ONE (13:05)
[2022-05-03] MEDS ORDERED: MIDAZOLAM HCL 2MG/2ML 2ml VIAL (1mg/ml) ONE (13:05)
[2022-05-03] MEDS ORDERED: LIDOCAINE 2% (LOCAL ANESTH.) PF 5ml SDV ONE (13:13)
[2022-05-03] MEDS ORDERED: ceFAZolin 1GM/50ML 100 ML IV ONE (14:09)
[2022-05-03] MEDS ORDERED: MIDAZOLAM HCL 2MG/2ML 2ml VIAL (1mg/ml) IV PRN (15:30)
[2022-05-03] MEDS ORDERED: ONDANSETRON HCL 4 MG/2 ML VIAL IV PRN (15:30)
[2022-05-03] MEDS ORDERED: HYDROmorphone HCL 2 MG/ML VL/or syr IV PRN (15:30)
[2022-05-03] MEDS ORDERED: MORPHINE SULFATE 4 MG/ML SYR/VIAL IV PRN (15:30)
[2022-05-03] MEDS ORDERED: LABETALOL HCL 5 MG/ML 4ML SYRINGE IV PRN (15:30)
[2022-05-03] MEDS ORDERED: ePHEDrine SULFATE 50 MG/ML AMP IV PRN (15:30)
[2022-05-03] MEDS ORDERED: SUGAMMADEX 200mg/2ml Vial (100MG/ML) IV ONE (15:51)
[2022-05-03] MEDS: ATORVASTATIN 20 MG TAB PO SCH (21:52)
[2022-05-03 22:00] VITALS: BP 114/62
[2022-05-04] MEDS: SODIUM CHLORIDE 0.9% 1,000 ML IV SCH (05:00)
[2022-05-04 05:04] VITALS: BP 129/66
[2022-05-04] MEDS: ACCU-CHEK COMFORT CURVE STRIP VI SCH ×3 (05:11→17:43)
[2022-05-04] MEDS: metroNIDAZOLE 500MG/100ML 100 ML IV SCH ×3 (05:11→22:01)
[2022-05-04] MEDS: InsuLIN REG 1unit/0.01ml Soln (100units/ml) SC SCH ×3 (05:12→17:43)
[2022-05-04 06:45] LABS: Basophils # (auto) 0 10 ^3/uL (0-0.2); Basophils % (auto) 0.3 % (0.0-2.0); Eosinophils # (auto) 0 10 ^3/uL (0-0.8); Hematocrit 28.9 % (36.0-46.0); Hemoglobin 9.6 g/dL (12.2-16.2); Lymphocytes # (auto) 0.5 10 ^3/uL (0.4-5.4); Lymphocytes % (auto) 3.9 % (10.0-50.0); Mean Corpuscular Hemoglobin 27.9 pg (28.0-32.0); Mean Corpuscular Hgb Conc. 33.3 g/dL (32.0-36.0); Mean Corpuscular Volume 83.7 fL (80.0-100.0); Monocytes # (auto) 0.7 10 ^3/uL (0-1.3); Monocytes % (auto) 5.2 % (0.0-12.0); Neutrophils # (auto) 11.7 10 ^3/uL (1.6-8.6); Neutrophils % (auto) 90.6 % (37.0-80.0); Red Blood Cells 3.45 10^6/uL (4.0-5.20); Red Cell Distribution Width 14.9 % (11.8-14.3); White Blood Cell 12.9 10^3/uL (4.4-10.8)
[2022-05-04 07:01] LABS: Potassium 4.1 mmol/L (3.5-5.1)
[2022-05-04 07:06] LABS: Albumin 1.7 g/dL (3.4-5.0); BUN/Creatinine Ratio 21.5; Bilirubin, Total 0.3 mg/dL (0.2-1.0); Calcium 6.9 mg/dL (8.5-10.1); Total Protein 5.5 g/dL (6.4-8.2)
[2022-05-04 09:00] VITALS: BP 106/62
[2022-05-04] MEDS: cefTRIAXone 1GM/50ML D5W 50 ML IV SCH (09:17)
[2022-05-04] MEDS: CITALOPRAM HYDROBR 20 MG TAB PO SCH (09:18)
[2022-05-04] MEDS: SODIUM BICARBONATE 50ML VIAL 50 ML in SOD CHL 0.45% 1,000 ML IV SCH ×3 (12:03→22:01)
[2022-05-04 12:51] VITALS: BP 106/61
[2022-05-04 16:55] VITALS: BP 108/58
[2022-05-04 22:00] VITALS: BP 113/66
[2022-05-04] MEDS: ATORVASTATIN 20 MG TAB PO SCH (22:00)
[2022-05-05] MEDS: ACCU-CHEK COMFORT CURVE STRIP VI SCH ×3 (00:08→11:34)
[2022-05-05 05:00] VITALS: BP 110/65
[2022-05-05] MEDS: metroNIDAZOLE 500MG/100ML 100 ML IV SCH ×2 (05:31→14:00)
[2022-05-05] MEDS: InsuLIN REG 1unit/0.01ml Soln (100units/ml) SC SCH ×3 (05:47→11:34)
[2022-05-05 06:55] LABS: Basophils # (auto) 0 10 ^3/uL (0-0.2); Basophils % (auto) 0.2 % (0.0-2.0); Eosinophils # (auto) 0.1 10 ^3/uL (0-0.8); Eosinophils % (auto) 0.8 % (0.0-7.0); Hematocrit 28.3 % (36.0-46.0); Hemoglobin 9.3 g/dL (12.2-16.2); Lymphocytes # (auto) 1.4 10 ^3/uL (0.4-5.4); Lymphocytes % (auto) 11.5 % (10.0-50.0); Mean Corpuscular Hemoglobin 27.6 pg (28.0-32.0); Mean Corpuscular Hgb Conc. 32.9 g/dL (32.0-36.0); Mean Corpuscular Volume 83.9 fL (80.0-100.0); Monocytes # (auto) 1.1 10 ^3/uL (0-1.3); Monocytes % (auto) 9.5 % (0.0-12.0); Neutrophils # (auto) 9.4 10 ^3/uL (1.6-8.6); Red Blood Cells 3.38 10^6/uL (4.0-5.20); Red Cell Distribution Width 14.8 % (11.8-14.3)
[2022-05-05 07:11] LABS: Potassium 3.7 mmol/L (3.5-5.1)
[2022-05-05 07:18] LABS: Albumin 1.5 g/dL (3.4-5.0); BUN/Creatinine Ratio 20.6; Bilirubin, Total 0.2 mg/dL (0.2-1.0); Calcium 6.9 mg/dL (8.5-10.1); Total Protein 5.2 g/dL (6.4-8.2); Uric Acid 10.2 mg/dL (2.6-6.0)
[2022-05-05 09:00] VITALS: BP 124/61
[2022-05-05] MEDS: CITALOPRAM HYDROBR 20 MG TAB PO SCH (09:16)
[2022-05-05] MEDS: cefTRIAXone 1GM/50ML D5W 50 ML IV SCH (09:17)
[2022-05-05] MEDS: SODIUM BICARBONATE 50ML VIAL 50 ML in SOD CHL 0.45% 1,000 ML IV SCH (09:18)
[2022-05-05] MEDS ORDERED: FAMOTIDINE (10MG/ML) 2ML VL IV SCH (10:00)
[2022-05-05] MEDS ORDERED: METR500T PO (10:32)
[2022-05-05] MEDS ORDERED: LEVO500T31 PO (10:32)
[2022-05-05] MEDS ORDERED: PANT40TA2 PO (10:32)
[2022-05-05 10:53] VITALS: BP 124/61
[2022-05-05 13:00] VITALS: BP 118/69
[2022-05-05 17:00] VITALS: BP 131/73
== END 2022-05-05 17:40 | disposition home or self-care (01) | DRG 853 ==
LOC: ER 15:48 → TELE 18:53 → TELE-CENTR 04-30 14:39
PROVIDERS: ADMIT Nurse Practitioner Family; ATTEND Internal Medicine
PROC: 0FT44ZZ Resection of Gallbladder, Percutaneous Endoscopic Approach (ICD-10-PCS; principal; 2022-05-03 14:16)
DX: A41.9 Sepsis, unspecified organism (principal); I21.A1 Myocardial infarction type 2; J18.9 Pneumonia, unspecified organism; N17.0 Acute kidney failure with tubular necrosis; K80.00 Calculus of gallbladder with acute cholecystitis without obstruction; M48.56XA Collapsed vertebra, not elsewhere classified, lumbar region, initial encounter for fracture; E87.1 Hypo-osmolality and hyponatremia; N39.0 Urinary tract infection, site not specified; R65.20 Severe sepsis without septic shock; E87.6 Hypokalemia; J06.9 Acute upper respiratory infection, unspecified; N18.31 Chronic kidney disease, stage 3a; E86.0 Dehydration; Z20.822 Contact with and (suspected) exposure to COVID-19; E11.22 Type 2 diabetes mellitus with diabetic chronic kidney disease; E66.9 Obesity, unspecified; M81.0 Age-related osteoporosis without current pathological fracture; I12.9 Hypertensive chronic kidney disease with stage 1 through stage 4 chronic kidney disease, or unspecified chronic kidney disease; D63.1 Anemia in chronic kidney disease; M06.9 Rheumatoid arthritis, unspecified; N20.0 Calculus of kidney; Z96.649 Presence of unspecified artificial hip joint; E78.5 Hyperlipidemia, unspecified; G89.29 Other chronic pain; Z87.891 Personal history of nicotine dependence; Z88.5 Allergy status to narcotic agent; Z79.899 Other long term (current) drug therapy; Z68.22 Body mass index [BMI] 22.0-22.9, adult
CPT/HCPCS: 36415; 70360; 71045; 74176; 76705; 76775; 78226; 80048; 80053; 80061; 81001; 82306; 82570; 82962; 83036; 83735; 83970; 84100; 84156; 84300; 84443; 84484; 84550; 85025; 85610; 85730; 93005; 93306; 96365; 96366; 96367; 96372; 97116; 97163; 97530; G0378; J0690; J0696; J1100; J1815; J2001; J2250; J2405; J3480; J3490

== ENCOUNTER → 2022-06-03 | Outpatient (CLI) | payer OTHER ==
[~2022-06-03] MED LIST changes: -ACET-1803 PO; -ASPI-543 PO; -HYDR-4833 PO; +LEVO500T31 PO; +METR500T PO; -MULT-908 PO; +PANT40TA2 PO
[2022-06-03 11:18] LABS: Basophils # (auto) 0 10 ^3/uL (0-0.2); Basophils % (auto) 0.6 % (0.0-2.0); Eosinophils # (auto) 0.2 10 ^3/uL (0-0.8); Hematocrit 30.4 % (36.0-46.0); Hemoglobin 9.9 g/dL (12.2-16.2); Lymphocytes # (auto) 1.4 10 ^3/uL (0.4-5.4); Mean Corpuscular Hemoglobin 28.6 pg (28.0-32.0); Mean Corpuscular Hgb Conc. 32.6 g/dL (32.0-36.0); Mean Corpuscular Volume 87.5 fL (80.0-100.0); Monocytes # (auto) 1.3 10 ^3/uL (0-1.3); Monocytes % (auto) 16.2 % (0.0-12.0); Neutrophils # (auto) 4.9 10 ^3/uL (1.6-8.6); Neutrophils % (auto) 63.2 % (37.0-80.0); Red Blood Cells 3.48 10^6/uL (4.0-5.20); White Blood Cell 7.7 10^3/uL (4.4-10.8)
[2022-06-03 12:09] LABS: Potassium 3.9 mmol/L (3.5-5.1)
[2022-06-03 12:10] LABS: Albumin 2.1 g/dL (3.4-5.0); BUN/Creatinine Ratio 12.4; Bilirubin, Total 0.4 mg/dL (0.2-1.0); Calcium 8.8 mg/dL (8.5-10.1); Magnesium 1.6 mg/dL (1.6-2.6); Total Protein 6.5 g/dL (6.4-8.2)
== END | disposition home or self-care (01) ==
LOC: LAB 10:45
PROVIDERS: ATTEND Internal Medicine
DX: M81.0 Age-related osteoporosis without current pathological fracture (principal); M06.9 Rheumatoid arthritis, unspecified
CPT/HCPCS: 36415; 80053; 82306; 82728; 83615; 83735; 85025

== ENCOUNTER → 2022-07-08 | Outpatient (CLI) | payer OTHER, MEDICAID | END | disposition home or self-care (01) | LOC: XYW 07:37 | PROVIDERS: ATTEND Internal Medicine | DX: R07.89 Other chest pain (principal); R09.89 Other specified symptoms and signs involving the circulatory and respiratory systems | CPT/HCPCS: 93886 ==

== ENCOUNTER → 2022-07-29 | Outpatient (CLI) | payer OTHER, MEDICAID ==
[2022-07-29 11:50] LABS: Basophils # (auto) 0 10 ^3/uL (0-0.2); Basophils % (auto) 0.5 % (0.0-2.0); Eosinophils # (auto) 0.2 10 ^3/uL (0-0.8); Eosinophils % (auto) 2.4 % (0.0-7.0); Hematocrit 23.6 % (36.0-46.0); Hemoglobin 7.6 g/dL (12.2-16.2); Lymphocytes # (auto) 1.9 10 ^3/uL (0.4-5.4); Lymphocytes % (auto) 27.8 % (10.0-50.0); Mean Corpuscular Hemoglobin 27.2 pg (28.0-32.0); Mean Corpuscular Hgb Conc. 32.1 g/dL (32.0-36.0); Mean Corpuscular Volume 84.8 fL (80.0-100.0); Monocytes # (auto) 0.8 10 ^3/uL (0-1.3); Monocytes % (auto) 11.8 % (0.0-12.0); Neutrophils % (auto) 57.5 % (37.0-80.0); Nucleated Red Blood Cells % 0.1 %; Red Blood Cells 2.78 10^6/uL (4.0-5.20); Red Cell Distribution Width 16.3 % (11.8-14.3); White Blood Cell 6.9 10^3/uL (4.4-10.8)
[2022-07-29 12:13] LABS: Calcium 8.2 mg/dL (8.5-10.1); Magnesium 1.8 mg/dL (1.6-2.6); Potassium 3.6 mmol/L (3.5-5.1)
[2022-07-29 12:15] LABS: BUN/Creatinine Ratio 10.9
[2022-07-29 12:18] LABS: Bilirubin, Total 0.3 mg/dL (0.2-1.0)
== END | disposition home or self-care (01) ==
LOC: LAB 11:18
PROVIDERS: ATTEND Internal Medicine
DX: M81.0 Age-related osteoporosis without current pathological fracture (principal); M06.9 Rheumatoid arthritis, unspecified; E11.9 Type 2 diabetes mellitus without complications
CPT/HCPCS: 36415; 80053; 82306; 82728; 83540; 83615; 83735; 85025

== ENCOUNTER → 2022-08-26 | Outpatient (CLI) | payer OTHER, MEDICAID ==
[2022-08-26 12:08] LABS: Eosinophils # (auto) 0.1 10 ^3/uL (0-0.8); Eosinophils % (auto) 1.7 % (0.0-7.0); Lymphocytes # (auto) 1.9 10 ^3/uL (0.4-5.4); Monocytes # (auto) 0.7 10 ^3/uL (0-1.3)
[2022-08-26 12:10] LABS: Basophils # (auto) 0 10 ^3/uL (0-0.2); Basophils % (auto) 0.5 % (0.0-2.0); Hemoglobin 8.6 g/dL (12.2-16.2); Lymphocytes % (auto) 23.5 % (10.0-50.0); Mean Corpuscular Hemoglobin 25.7 pg (28.0-32.0); Mean Corpuscular Hgb Conc. 32.9 g/dL (32.0-36.0); Monocytes % (auto) 8.8 % (0.0-12.0); Neutrophils # (auto) 5.2 10 ^3/uL (1.6-8.6); Neutrophils % (auto) 65.5 % (37.0-80.0); Red Blood Cells 3.34 10^6/uL (4.0-5.20)
[2022-08-26 12:42] LABS: Potassium 4.1 mmol/L (3.5-5.1)
[2022-08-26 12:45] LABS: Albumin 2.6 g/dL (3.4-5.0); BUN/Creatinine Ratio 11.4; Calcium 8.5 mg/dL (8.5-10.1); Magnesium 1.8 mg/dL (1.6-2.6)
[2022-08-26 12:48] LABS: Bilirubin, Total 0.4 mg/dL (0.2-1.0); Total Protein 6.5 g/dL (6.4-8.2)
[2022-08-26 12:51] LABS: % Iron Saturation 7.6 % (15-50)
== END | disposition home or self-care (01) ==
LOC: LAB 11:23
PROVIDERS: ATTEND Internal Medicine
DX: M81.0 Age-related osteoporosis without current pathological fracture (principal); M06.9 Rheumatoid arthritis, unspecified
CPT/HCPCS: 36415; 80053; 82306; 82728; 83540; 83550; 83615; 83735; 85025

== ENCOUNTER → 2022-09-19 | Outpatient (CLI) | payer OTHER, MEDICAID ==
[2022-09-19 10:55] LABS: Basophils # (auto) 0.1 10 ^3/uL (0-0.2); Basophils % (auto) 0.7 % (0.0-2.0); Eosinophils # (auto) 0.7 10 ^3/uL (0-0.8); Mean Corpuscular Hemoglobin 24.5 pg (28.0-32.0); Neutrophils # (auto) 6.1 10 ^3/uL (1.6-8.6)
[2022-09-19 10:59] LABS: Eosinophils % (auto) 6.8 % (0.0-7.0); Hematocrit 26.5 % (36.0-46.0); Hemoglobin 8.4 g/dL (12.2-16.2); Lymphocytes # (auto) 2.2 10 ^3/uL (0.4-5.4); Lymphocytes % (auto) 22.1 % (10.0-50.0); Mean Corpuscular Hgb Conc. 31.8 g/dL (32.0-36.0); Monocytes % (auto) 9.9 % (0.0-12.0); Neutrophils % (auto) 60.5 % (37.0-80.0); Red Blood Cells 3.44 10^6/uL (4.0-5.20); Red Cell Distribution Width 17.9 % (11.8-14.3)
[2022-09-19 11:08] LABS: Albumin 2.7 g/dL (3.4-5.0); Calcium 8.4 mg/dL (8.5-10.1); Potassium 4.3 mmol/L (3.5-5.1)
[2022-09-19 11:11] LABS: BUN/Creatinine Ratio 14.5; Bilirubin, Total 0.2 mg/dL (0.2-1.0); Total Protein 6.4 g/dL (6.4-8.2)
== END | disposition home or self-care (01) ==
LOC: LAB 10:26
PROVIDERS: ATTEND Internal Medicine
DX: M81.0 Age-related osteoporosis without current pathological fracture (principal); M06.9 Rheumatoid arthritis, unspecified
CPT/HCPCS: 36415; 80053; 82306; 83615; 83735; 85025

== ENCOUNTER 2022-12-10 07:21 | Day surgery (SDC) | payer OTHER, MEDICAID ==
[~2022-12-10] VITALS: Ht 149.9 cm; Wt 63.5 kg
[2022-12-10] VITALS (15 sets, daily range): BP systolic 101–161; BP diastolic 39–58
[~2022-12-10 07:21] MED LIST changes: -LEVO500T31 PO; -METR500T PO
== END 2022-12-10 14:30 | disposition home or self-care (01) ==
LOC: CATH 07:21
PROVIDERS: ATTEND Internal Medicine
DX: D64.9 Anemia, unspecified (principal)
CPT/HCPCS: 86850; 86900; 86901; 86920; P9016

== ENCOUNTER → 2023-01-07 | Outpatient (CLI) | payer MEDICAID ==
[2023-01-07 15:32] LABS: Basophils # (auto) 0.1 10 ^3/uL (0-0.2); Mean Corpuscular Hemoglobin 22.8 pg (28.0-32.0); Monocytes # (auto) 0.7 10 ^3/uL (0-1.3)
[2023-01-07 15:34] LABS: Eosinophils # (auto) 0.3 10 ^3/uL (0-0.8); Eosinophils % (auto) 4.5 % (0.0-7.0); Hematocrit 29.8 % (36.0-46.0); Hemoglobin 9.5 g/dL (12.2-16.2); Lymphocytes # (auto) 2.4 10 ^3/uL (0.4-5.4); Lymphocytes % (auto) 32.1 % (10.0-50.0); Mean Corpuscular Hgb Conc. 31.9 g/dL (32.0-36.0); Mean Corpuscular Volume 71.4 fL (80.0-100.0); Monocytes % (auto) 9.5 % (0.0-12.0); Neutrophils % (auto) 52.9 % (37.0-80.0); Red Blood Cells 4.18 10^6/uL (4.0-5.20); White Blood Cell 7.5 10^3/uL (4.4-10.8)
[2023-01-07 15:36] LABS: Red Cell Distribution Width 23.8 % (11.8-14.3)
[2023-01-07 16:03] LABS: Albumin 3.4 g/dL (3.4-5.0); Calcium 9.2 mg/dL (8.5-10.1); Magnesium 1.9 mg/dL (1.6-2.6); Potassium 4.2 mmol/L (3.5-5.1)
[2023-01-07 16:07] LABS: Bilirubin, Total 0.5 mg/dL (0.2-1.0); Total Protein 6.7 g/dL (6.4-8.2)
== END | disposition home or self-care (01) ==
LOC: LAB 15:19
PROVIDERS: ATTEND Internal Medicine
DX: M81.0 Age-related osteoporosis without current pathological fracture (principal); M06.9 Rheumatoid arthritis, unspecified
CPT/HCPCS: 36415; 80053; 82306; 83615; 83735; 85025

== ENCOUNTER → 2023-01-30 | Outpatient (CLI) | payer OTHER, MEDICAID ==
[~2023-01-30] MED LIST changes: +FOLI-119 PO; -FOLI1TAB6 PO; -HYDR12.56 PO; +HYDR12.59 PO
[2023-01-30 12:02] LABS: Monocytes # (auto) 1.1 10 ^3/uL (0-1.3); Nucleated Red Blood Cells % 0.1 %; White Blood Cell 10.1 10^3/uL (4.4-10.8)
[2023-01-30 12:04] LABS: Basophils # (auto) 0.1 10 ^3/uL (0-0.2); Basophils % (auto) 0.5 % (0.0-2.0); Eosinophils # (auto) 0.2 10 ^3/uL (0-0.8); Eosinophils % (auto) 2.4 % (0.0-7.0); Hematocrit 29.2 % (36.0-46.0); Hemoglobin 9.3 g/dL (12.2-16.2); Lymphocytes # (auto) 2.2 10 ^3/uL (0.4-5.4); Lymphocytes % (auto) 22.3 % (10.0-50.0); Mean Corpuscular Hemoglobin 23.6 pg (28.0-32.0); Mean Corpuscular Hgb Conc. 31.7 g/dL (32.0-36.0); Mean Corpuscular Volume 74.4 fL (80.0-100.0); Monocytes % (auto) 10.9 % (0.0-12.0); Neutrophils # (auto) 6.4 10 ^3/uL (1.6-8.6); Neutrophils % (auto) 63.9 % (37.0-80.0); Red Blood Cells 3.93 10^6/uL (4.0-5.20); Red Cell Distribution Width 25.8 % (11.8-14.3)
[2023-01-30 12:41] LABS: Albumin 3.2 g/dL (3.4-5.0); Magnesium 2.1 mg/dL (1.6-2.6); Potassium 3.9 mmol/L (3.5-5.1)
[2023-01-30 12:46] LABS: BUN/Creatinine Ratio 13.1 (10.0-20.0); Bilirubin, Total 0.3 mg/dL (0.2-1.0); Calcium 8.6 mg/dL (8.5-10.1); Total Protein 6.7 g/dL (6.4-8.2)
== END | disposition home or self-care (01) ==
LOC: LAB 11:36
PROVIDERS: ATTEND Internal Medicine
DX: M81.0 Age-related osteoporosis without current pathological fracture (principal); M06.9 Rheumatoid arthritis, unspecified
CPT/HCPCS: 36415; 80053; 82306; 82728; 83540; 83615; 83735; 85025

== ENCOUNTER 2024-07-08 12:29 | Inpatient (IN) | payer OTHER, MEDICAID ==
[~2024-07-08] VITALS: Ht 144.8 cm; Wt 50.7 kg
--- NOTE | 2024-07-08 12:53 | ED.PDOC ---
History of Present Illness HPI Alina Antonio: HPI: Poor Historian. 78-year-old female presents to emergency department for evaluation of evaluation of low hemoglobin on blood obtained on July 05. Patient has history of blood transfusions in the past. Patient has history of chronic anemia due to chronic bleeding hemorrhoids. She has been evaluated for this condition by surgeons and it is not treatable. Patient is not on blood thinners. Patient complains of some generalized weakness and exertional dyspnea. Denies any acute pain anywhere else in her body . Patient reports allergies to Vital Signs BP: 109/48 HR: 65 Temp: 98.1F SPO2: 98% RA RR: 18 Past Medcial History: HTN and CKF Past Surgical History: Denies REVIEW OF SYSTEMS: CONSTITUTIONAL: Denies acute: fever, diaphoresis, chills, HEAD: Denies acute: headache, photophobia Eyes: Denies acute: Double vision, vision loss, eye pain, eye discharge. EARS: Denies acute: tinnitus, hearing loss, ear discharge, ear pain, THROAT: Denies acute: sore throat, swelling, difficulty swallowing , pain with swallowing, change in voice. NECK: Denies acute: neck pain, neck swelling, stiff neck. HEART: Denies acute : chest pain, palpitations, LUNGS: Denies acute: , wheezing, cough, hemoptysis ABDOMEN: Denies acute: abdominal pain, Nausea, Vomiting, diarrhea, melena , hematemesis, SKIN: Denies acute: rash, redness, lesions, itchiness. EXTREMITIES: Denies acute: calf pain, numbness, tingling, weakness, denies pain in extremity. Denies acute: Low back pain. Neuro: Denies acute: focal neurological deficit, motor or sensory focal neurological deficit, tremors, seizure like activity, confusion, dizziness, change in mental status, loss of bowel or bladder function, cauda equina like symptoms. : Denies acute: dysuria, hematuria, flank pain, increase in urinary frequency. PSYCH: Denies acute: hallucination, suicidal ideation, homicidal ideation. FEMALE: Denies acute: abnormal vaginal bleeding, foul odor, unusual discharge. PHYSICAL EXAM: General: no acute distress, awake and alert. Head: normocephalic, atraumatic. Neck: supple, trachea is midline, no swelling. Throat: Normal phonation. Eyes:, no erythema, no purulent discharge, no proptosis, no icterus. Heart: regular rate, regular rhythm, no significant murmur appreciated. Lungs: no apparent respiratory distress, Able to speak in full sentences. No wheezing, no rhonchi, no crackles. No stridors Clear to auscultation bilaterally. Abdomen: non tender to palpation, non distended, soft, no guarding, no rebound, + bowel sounds. Neuro: Awake, Alert, oriented to name, self, situation, follows commands GCS=15. Speech is normal. Skin: no petechia, no purpura, no cyanosis, noted-pale, not jaundice. Lower extremities: --trace bilateral- Pitting edema no deformity, no focal swelling, no calf TTP. Makes eye contact. moves all four extremities. Face: no apparent facial droop. Ambulating in the ED independently. Time Seen by MD: 12:50 Primary Care Provider: rosendo Reviewed Notes: Nurses Notes, Allergies Allergies: Coded Allergies: Tramadol (Verified Allergy, Unknown, 12/09/22) Home Meds Active Scripts Pantoprazole Sodium Sesquihydr (Protonix) 40 Mg Tab, 40 MG PO BID for 30 Days, #60 TAB Prov:DANUTA BARON MD 05/05/22 Reported Medications Escitalopram Oxalate (Lexapro) 5 Mg Tab, 1 TAB PO DAILY, #30 TAB 2 Refills 08/21/20 Golimumab (SIMPONI ARIA) 50 Mg/4 Ml Janis, 140 MG IV [id number], ML 08/21/20 Denosumab (Prolia) 60 Mg/Ml Jansi, 60 MG SC [id number], ML 08/21/20 Folic Acid (Folic Acid) 1 Mg Tab, 2 TAB PO DAILY for 30 Days, MG 08/21/20 Prednisone (Prednisone) 5 Mg Tab, 5 MG PO DAILY for RHEUMATOID ARTHRITIS, TAB 08/21/20 Hydrochlorothiazide (Hydrochlorothiazide) 12.5 Mg Cap, 12.5 MG PO DAILY for 30 Days, MG 08/21/20 Information Source: Patient Mode of Arrival: Wheelchair Past Medical History PAST MEDICAL HISTORY: CKF, HTN Surgical History: Denies all surgeries PROCESS TECHNICIAN History: No Pertinent PROCESS TECHNICIAN History Family History Family History: Reviewed,noncontributory to illness Social History Smoker: Non-Smoker Alcohol: Denies ETOH Use Drugs: Denies Drug Use Lives In: Home Was a procedure done? Was a procedure done?: No Differential Dx Considerations may include: Includes but not limited to thyroid disease, encephalopathy, electrolyte abnormality, sepsis, infection, intracranial pathology, drug adverse effects, arrhythmia, kidney insufficiency, ACS, CVA, malignancy, anemia X-Ray, Labs, Meds, VS Vital Signs Date Time Temp Pulse Resp B/P (MAP) Pulse Ox O2 Delivery O2 Flow Rate FiO2 07/08/24 21:28 98.7 60 16 134/52 98.7 07/08/24 21:02 99.0 56 19 139/49 99.0 07/08/24 20:23 99.0 60 16 149/55 (86) 97 99.0 07/08/24 18:31 65 20 96 Room Air* 0 21 07/08/24 18:31 98.1 65 18 109/48 (68) 98 98.1 07/08/24 14:45 139/49 07/08/24 13:01 98.1 65 18 109/48 (68) 98 07/08/24 12:55 63 Lab Test 07/08/24 18:13 07/08/24 13:27 Range/Units Urine Color Yellow Yellow Urine Clarity Clear Clear Urine pH 5.5 5.0-9.0 Urine Specific [place] 1.019 1.001-1.035 Urine Protein Trace H Negative Urine Ketones Negative Negative Urine Blood Trace H Negative /uL Urine Nitrite Negative Negative Urine Bilirubin Negative Negative Urine Urobilinogen Normal Negative mg/dL Urine Leukocyte Esterase Negative Negative /uL Urine RBC 9 0 - 4 /hpf Urine WBC 2 0 - 5 /hpf Urine Squamous Epithelial Cells Few <5 /hpf Urine Bacteria Few H None Seen /hpf Urine Mucus Few None Seen Urine Glucose Normal Normal mg/dL White Blood Count 8.6 4.4-10.8 10^3/uL Red Blood Count 2.16 L 4.0-5.20 10^6/uL Hemoglobin 5.9 *L 12.2-16.2 g/dL Hematocrit 18.8 L 36.0-46.0 % Mean Corpuscular Volume 87.1 80.0-100.0 fL Mean Corpuscular Hemoglobin 27.1 L 28.0-32.0 pg Mean Corpuscular Hemoglobin Concent 31.1 L 32.0-36.0 g/dL Red Cell Distribution Width 17.8 H 11.8-14.3 % Platelet Count 284 140-450 10^3/uL Mean Platelet Volume 7.6 6.9-10.8 fL Neutrophils (%) (Auto) 70.5 37.0-80.0 % Lymphocytes (%) (Auto) 18.1 10.0-50.0 % Monocytes (%) (Auto) 10.1 0.0-12.0 % Eosinophils (%) (Auto) 0.8 0.0-7.0 % Basophils (%) (Auto) 0.5 0.0-2.0 % Neutrophils # (Auto) 6.0 1.6-8.6 10 ^3/uL Lymphocytes # (Auto) 1.5 0.4-5.4 10 ^3/uL Monocytes # (Auto) 0.9 0-1.3 10 ^3/uL Eosinophils # (Auto) 0.1 0-0.8 10 ^3/uL Basophils # (Auto) 0 0-0.2 10 ^3/uL Nucleated Red Blood Cells 0.1 % Sodium Level 138 136-145 mmol/L Potassium Level 4.0 3.5-5.1 mmol/L Chloride Level 104 98-107 mmol/L Carbon Dioxide Level 26 20-31 mmol/L Anion Gap 8 5-15 Blood Urea Nitrogen 20 9-23 mg/dL Creatinine 1.91 H 0.550-1.02 mg/dL Glomerular Filtration Rate Calc 27 >90 mL/min BUN/Creatinine Ratio 10.5 10.0-20.0 Serum Glucose 101 74-106 mg/dL Calcium Level 8.8 8.7-10.4 mg/dL Total Bilirubin 0.4 0.2-1.0 mg/dL Aspartate Amino Transferase (AST) 25 13-40 U/L Alanine Aminotransferase (ALT) 28 7-40 U/L Alkaline Phosphatase 65 46-116 U/L B-Type Natriuretic Peptide 1074.94 0-100 pg/mL Total Protein 4.9 L 5.7-8.2 g/dL Albumin 2.8 L 3.2-4.8 g/dL Current Medications Medications (Trade) Dose Ordered Sig/Lorie Route Start Time Stop Time Status Last Admin Furosemide (Lasix Injection) 60 mg ONCE ONCE IV 07/08/24 14:45 07/08/24 14:46 DC 07/08/24 14:45 Time of 1ST Reevaluation: 12:52 Reevaluation 1ST: Unchanged Patient Education/Counseling: Diagnosis, Treatment Family Education/Counseling: No Family Present Comments Patient presented with the above HPI.--symptomatic anemia----workup was initiated. patient was found with the above mentioned diagnosis. Patient was given: Patient was consented for blood transfusion. Infusion initiated in our ED. patient was given Lasix Patient ED course and VS have been stabilized. Patient has been reassessed in the ED and remained in a stable condition. Pertinent incidental findings were discussed with the patient and/or family. Patient/family voices understanding and is agreeable with plan. Patient has been observed in the ED adequate length of time to insure improvement/stability. patient was admitted to the medicine team for further evaluation and treatment of their presentation. All the reports of any imaging studies that were ordered by myself were reviewed by myself. Departure 1 Departure Time of Disposition: 14:35 Impression: Primary Impression: Symptomatic anemia Additional Impressions: Volume overload Pleural effusion Elevated brain natriuretic peptide (BNP) level Disposition: ADMITTED INPATIENT Condition: Guarded Discharged With: Self Critical Care Note Critical Care Time?: Yes (35 min-critical care time only) I personally scribed for ABIDA STEWARD DO ([email or web address]) on 07/08/24 at 12:53. Electronically submitted by Emmanuelle Clancy ([facility]). I personally scribed for ABIDA STEWARD DO ([email or web address]) on 07/08/24 at 16:22. Electronically submitted by Emmanuelle Clancy ([facility]). I personally scribed for ABIDA STEWARD DO ([email or web address]) on 07/08/24 at 16:24. Electronically submitted by Emmanuelle Clancy ([facility]). ABIDA STEWARD DO Jul 08, 2024 12:53
[2024-07-08 13:49] LABS: Basophils # (auto) 0 10 ^3/uL (0-0.2); Basophils % (auto) 0.5 % (0.0-2.0); Eosinophils # (auto) 0.1 10 ^3/uL (0-0.8); Eosinophils % (auto) 0.8 % (0.0-7.0); Hematocrit 18.8 % (36.0-46.0); Lymphocytes # (auto) 1.5 10 ^3/uL (0.4-5.4); Lymphocytes % (auto) 18.1 % (10.0-50.0); Mean Corpuscular Hemoglobin 27.1 pg (28.0-32.0); Mean Corpuscular Hgb Conc. 31.1 g/dL (32.0-36.0); Mean Corpuscular Volume 87.1 fL (80.0-100.0); Monocytes # (auto) 0.9 10 ^3/uL (0-1.3); Monocytes % (auto) 10.1 % (0.0-12.0); Neutrophils % (auto) 70.5 % (37.0-80.0); Nucleated Red Blood Cells % 0.1 %; Platelet Count (auto) 284 10^3/uL (140-450); Red Blood Cells 2.16 10^6/uL (4.0-5.20); Red Cell Distribution Width 17.8 % (11.8-14.3); White Blood Cell 8.6 10^3/uL (4.4-10.8)
[2024-07-08 13:52] LABS: Hemoglobin 5.9 g/dL (12.2-16.2)
[2024-07-08 14:08] LABS: Alanine Aminotransferase 28 U/L (7-40); Albumin 2.8 g/dL (3.2-4.8); Alkaline Phosphatase 65 U/L (46-116); Anion Gap 8 (5-15); Aspartate Aminotransferase 25 U/L (13-40); BUN/Creatinine Ratio 10.5 (10.0-20.0); Blood Urea Nitrogen 20 mg/dL (9-23); Calcium 8.8 mg/dL (8.7-10.4); Carbon Dioxide 26 mmol/L (20-31); Chloride 104 mmol/L (98-107); Glucose 101 mg/dL (74-106); Sodium 138 mmol/L (136-145)
[2024-07-08 14:09] LABS: Bilirubin, Total 0.4 mg/dL (0.2-1.0); Total Protein 4.9 g/dL (5.7-8.2)
[2024-07-08] MEDS: FUROSEMIDE 100 MG/10ML VIAL IV ONE (14:45)
[2024-07-08 18:31] VITALS: PULSE 65; RESP 20; O2SAT 96
--- NOTE | 2024-07-08 18:54 | DVH ---
EXAM: XY CHEST PORTABLE TECHNIQUE: Single frontal chest radiograph CLINICAL HISTORY: shortness breath COMPARISON: None Findings/Impression: Frontal chest radiograph demonstrates no acute osseous or superficial soft tissue abnormalities. Suba cute versus chronic left rib fractures. The trachea is midline. The cardiac silhouette and mediastinum are within normal limits. Small right and trace left pleural effusions with compressive atelectasis. A superimposed infectious process is not excluded. No pneumothorax.
[2024-07-08 19:14] LABS: Urine Bacteria FEW /hpf (None Seen); Urine Blood TRACE /uL (Negative); Urine Clarity Clear (Clear); Urine Color Yellow (Yellow); Urine Mucus FEW (None Seen); Urine Protein, UAD TRACE (Negative); Urine Specific Gravity 1.019 (1.001-1.035); Urine Urobilinogen Normal (Negative); Urine WBC 2 /hpf (0 - 5); Urine pH 5.5 (5.0-9.0)
[2024-07-08 21:02] VITALS: BP 139/49; PULSE 56; RESP 19; TEMP 99
[2024-07-08 21:28] VITALS: BP 134/52; PULSE 60; RESP 16; TEMP 98.7
[2024-07-08] MEDS ORDERED: ACETAMINOPHEN 325 MG TAB PO PRN (22:00)
[2024-07-08] MEDS ORDERED: ONDANSETRON HCL 4 MG/2 ML VIAL IV PRN (22:00)
[2024-07-08] MEDS ORDERED: POTASSIUM CHL 20MEQ/100ML 100 ML IV SCH (22:00)
[2024-07-08] MEDS ORDERED: MORPHINE SULFATE INJ 2 MG/ml SYRG IV PRN ×2 (22:00)
[2024-07-08] MEDS ORDERED: NITROGLYCERIN 0.4 MG SL TAB SL PRN (22:00)
[2024-07-08 22:58] VITALS: BP 143/53; PULSE 57; RESP 14; TEMP 98.9
[2024-07-08] MEDS: PANTOPRAZOLE 40 MG/10 ML VIAL INJ IV ONE (23:30)
[2024-07-08 23:56] VITALS: PULSE 55; RESP 16; O2SAT 96
[2024-07-09] VITALS (13 sets, daily range): BP systolic 114–172; BP diastolic 49–79; PULSE 48–90; RESP 14–20; TEMP 93.5–98.7; O2SAT 92–100
[2024-07-09] MEDS ORDERED: LACTATED RINGER'S 1,000 ML IV SCH
[2024-07-09] MEDS ORDERED: HYDR-4902 PO (01:48)
[2024-07-09] MEDS ORDERED: CHOL400C7 PO (01:48)
[2024-07-09] MEDS ORDERED: CYA100I PO (01:48)
--- NOTE | 2024-07-09 05:32 | DVHHPRES ---
History of Present Illness Resident Creating Document: RAGHU CANO RESIDENT Reason for Visit: severe anemia History of Present Illness 78-year-old female patient with past medical history of heart failure, rheumatoid arthritis, osteoporosis and chronic kidney disease presenting with a chief complaint of severe anemia and concerns about potential source of bleeding. The patient attributes the anemia to hard to treat hemorrhoids, as suggested by the surgeon though there is also clinical suspicion for diverticulosis or diverticular bleeding or other possible causes. She additionally reports abdominal pain and right leg pain that began last night, initially described as sharp and severe 10/10 intensity but has since improved. The right leg pain was associated with lower back pain that radiated diffusely. She also experienced fever and shortness of breath during this episode. Patient denies nausea, vomiting, diarrhea and active rectal bleeding. Her last bowel movement was today and was unremarkable except for passing gas. A rectal exam revealed no active bleeding. She underwent a colonoscopy 2 years ago which she reports was unremarkable. The patient lives with her daughter, denies alcohol, smoking, or drug use and is allergic to Toradol. Her primary care provider is Dr. Myra Sellers in [place]. The patient has a regular received 2 blood transfusion, aiming to raise her hemoglobin level to at least 8 given her history of heart failure and chronic kidney disease. A GI consultation is pending for further evaluation including colonoscopy, to identify the source of bleeding. Family History: None Smoke: No ALCOHOL: none Drugs: None Domestic Violence: Neg Review of Systems Review of Systems Constitutional: No: Fever, Chills, Sweats, Weakness, Malaise, Other Eyes: No: Pain, Vision change, Conjunctivae inflammation, Eyelid inflammation, Other, Redness ENT: No: Ear pain, Ear discharge, Nose pain, Nose discharge, Nose congestion, Mouth pain, Mouth swelling, Throat pain, Throat swelling, Other Respiratory: No Wheezing, Hemoptysis, Pleuritic Pain, Sputum, Wheezing, Other Cardiovascular: No: Chest Pain, Palpitations, Orthopnea, Paroxysmal Noc. Dyspnea, Edema, Lt Headedness, Other Gastrointestinal: No: Nausea, Vomiting, Abdominal Pain, Diarrhea, Constipation, Melena, Hematochezia, Other Musculoskeletal: Right leg pain that started in the back Neurological:; No: Weakness, Numbness, Incoordination, Change in speech, Con fusion, Seizures Allergies: Coded Allergies: Tramadol (Verified Allergy, Unknown, 12/09/22) Medications Current Medications Medications Dose Ordered Sig/Lorie Route Start Time Stop Time Status Last Admin Dose Admin Ondansetron HCl 4 mg Q4HP PRN IV 07/08/24 22:00 Acetaminophen 650 mg Q6HP PRN PO 07/08/24 22:00 Morphine Sulfate 2 mg Q4HPRN PRN IV 07/08/24 22:00 Nitroglycerin 0.4 mg Q5MINP PRN SL 07/08/24 22:00 Morphine Sulfate 2 mg Q30M PRN IV 07/08/24 22:00 Pantoprazole Sodium 40 mg BID IV 07/09/24 10:00 Exam Vital Signs Vital Signs Date Time Temp Pulse Resp B/P (MAP) Pulse Ox O2 Delivery O2 Flow Rate FiO2 07/09/24 01:00 98.1 53 17 136/51 (79) 97 98.1 07/08/24 23:56 Room Air* 0 21 Exam Examination General Appearance: Alert, Oriented X3, Cooperative, moderate acute distress HEENT: EOMI Respiratory: Clear to auscultation, Normal air movement Cardiovascular: Regular rate, Normal S1, Normal S2 Abdominal: Normal bowel sounds Extremities: No cyanosis, No edema, Normal pulses, No tenderness/swelling Skin: No rashes, No breakdown Psych/Mental Status: Mental status NL, Mood NL Labs/Xrays Labs Test 07/08/24 18:13 07/08/24 13:27 Range/Units Urine Color Yellow Yellow Urine Clarity Clear Clear Urine pH 5.5 5.0-9.0 Urine Specific [place] 1.019 1.001-1.035 Urine Protein Trace H Negative Urine Ketones Negative Negative Urine Blood Trace H Negative /uL Urine Nitrite Negative Negative Urine Bilirubin Negative Negative Urine Urobilinogen Normal Negative mg/dL Urine Leukocyte Esterase Negative Negative /uL Urine RBC 9 0 - 4 /hpf Urine WBC 2 0 - 5 /hpf Urine Squamous Epithelial Cells Few <5 /hpf Urine Bacteria Few H None Seen /hpf Urine Mucus Few None Seen Urine Glucose Normal Normal mg/dL White Blood Count 8.6 4.4-10.8 10^3/uL Red Blood Count 2.16 L 4.0-5.20 10^6/uL Hemoglobin 5.9 *L 12.2-16.2 g/dL Hematocrit 18.8 L 36.0-46.0 % Mean Corpuscular Volume 87.1 80.0-100.0 fL Mean Corpuscular Hemoglobin 27.1 L 28.0-32.0 pg Mean Corpuscular Hemoglobin Concent 31.1 L 32.0-36.0 g/dL Red Cell Distribution Width 17.8 H 11.8-14.3 % Platelet Count 284 140-450 10^3/uL Mean Platelet Volume 7.6 6.9-10.8 fL Neutrophils (%) (Auto) 70.5 37.0-80.0 % Lymphocytes (%) (Auto) 18.1 10.0-50.0 % Monocytes (%) (Auto) 10.1 0.0-12.0 % Eosinophils (%) (Auto) 0.8 0.0-7.0 % Basophils (%) (Auto) 0.5 0.0-2.0 % Neutrophils # (Auto) 6.0 1.6-8.6 10 ^3/uL Lymphocytes # (Auto) 1.5 0.4-5.4 10 ^3/uL Monocytes # (Auto) 0.9 0-1.3 10 ^3/uL Eosinophils # (Auto) 0.1 0-0.8 10 ^3/uL Basophils # (Auto) 0 0-0.2 10 ^3/uL Nucleated Red Blood Cells 0.1 % Sodium Level 138 136-145 mmol/L Potassium Level 4.0 3.5-5.1 mmol/L Chloride Level 104 98-107 mmol/L Carbon Dioxide Level 26 20-31 mmol/L Anion Gap 8 5-15 Blood Urea Nitrogen 20 9-23 mg/dL Creatinine 1.91 H 0.550-1.02 mg/dL Glomerular Filtration Rate Calc 27 >90 mL/min BUN/Creatinine Ratio 10.5 10.0-20.0 Serum Glucose 101 74-106 mg/dL Calcium Level 8.8 8.7-10.4 mg/dL Total Bilirubin 0.4 0.2-1.0 mg/dL Aspartate Amino Transferase (AST) 25 13-40 U/L Alanine Aminotransferase (ALT) 28 7-40 U/L Alkaline Phosphatase 65 46-116 U/L B-Type Natriuretic Peptide 1074.94 0-100 pg/mL Total Protein 4.9 L 5.7-8.2 g/dL Albumin 2.8 L 3.2-4.8 g/dL Assessment/Plan Assessment/Plan #Severe anemia status post transfusion likely chronic and multifactorial likely due to hard to treat hemorrhoids ? Diverticular bleeding ? Malignancy -Red blood cell bags -Furosemide -Iron panel -Ferritin -PT -PTT -Pantoprazole 40 mg b.i.d. IV -GI consult #Acute onset right leg pain and back pain likely due to osteoporosis ? Sc iatica? -Morphine p.r.n. -Acetaminophen 650 mg p.r.n. #Fever and mild shortness of breath likely due to systemic response secondary to severe anemia or underlying heart failure BNP >1000 #left pleural effusion -Same as above #Chronic kidney disease stage IV -monitor #Chronic back pain due to chronic compression fracture -same as above Case discussed with Dr. Baron Goals of care discussed with the patient for 39 minutes Code status: Full code Plan discussed with: Patient My Orders Orders - RAGHU CANO RESIDENT Procedure Category Date Status Time Admit ADMIT 07/08/24 Transmitted 21:58 Allergies LEXII 07/08/24 In Process 21:58 Code Status CODE 07/08/24 Transmitted 21:58 Ondansetron Hcl PHA 07/08/24 In Process (Zofran) 22:00 Complete Blood Count LAB 07/09/24 Logged 04:00 Comprehensive LAB 07/09/24 Logged Metabolic Panel 04:00 Npo (Nothing By DIET 07/09/24 Transmitted Mouth) Diet Breakfast Acetaminophen Tablet PHA 07/08/24 In Process (Tylenol Tablet) 22:00 Morphine Sulfate PHA 07/08/24 In Process Injection 22:00 Nitroglycerin PHA 07/08/24 In Process Sublingual (Ntrostat 22:00 Morphine Sulfate PHA 07/08/24 In Process Injection 22:00 Oxygen By Nasal RT 07/08/24 Transmitted Cannula 21:58 Stat Ekg For Chest [facility] 07/08/24 In Process Pain 21:58 Notify Md Of Changes [facility] 07/08/24 In Process From Base 21:58 Underground Repairer For [facility] 07/08/24 In Process 24 Hours 21:58 Emergency Dysrhythmia [facility] 07/08/24 In Process Protocol 21:58 Rhythm Strips Once [facility] 07/08/24 In Process Every Shift 21:58 Date of Service: Jul 08, 2024 Billing Provider: DANUTA BARON MD Common Visit Codes: 86122-[id number] INP/OBS CARE (HIGH) Secondary Visit Codes: 33964-RMPGBDRO CARE PLAN 30 MINUTES RAGHU CANO RESIDENT Jul 09, 2024 05:31 DANUTA BARON MD Jul 10, 2024 08:26
[2024-07-09 06:35] LABS: Basophils # (auto) 0.1 10 ^3/uL (0-0.2); Basophils % (auto) 0.7 % (0.0-2.0); Eosinophils # (auto) 0.1 10 ^3/uL (0-0.8); Eosinophils % (auto) 1.3 % (0.0-7.0); Hematocrit 27.3 % (36.0-46.0); Hemoglobin 8.9 g/dL (12.2-16.2); Lymphocytes # (auto) 1.5 10 ^3/uL (0.4-5.4); Lymphocytes % (auto) 19.3 % (10.0-50.0); Mean Corpuscular Hemoglobin 27.1 pg (28.0-32.0); Mean Corpuscular Hgb Conc. 32.7 g/dL (32.0-36.0); Mean Corpuscular Volume 82.9 fL (80.0-100.0); Monocytes % (auto) 12.8 % (0.0-12.0); Neutrophils # (auto) 5.2 10 ^3/uL (1.6-8.6); Neutrophils % (auto) 65.9 % (37.0-80.0); Nucleated Red Blood Cells % 0.2 %; Platelet Count (auto) 202 10^3/uL (140-450); White Blood Cell 7.9 10^3/uL (4.4-10.8)
[2024-07-09 06:49] LABS: INR 1.33 (0.9-1.15); Partial Thromboplastin Time 25.6 SEC (24.5-34.5); Prothrombin Time 13.8 sec (9.3-11.8)
[2024-07-09 07:01] LABS: Alanine Aminotransferase 25 U/L (7-40); Albumin 2.8 g/dL (3.2-4.8); Alkaline Phosphatase 56 U/L (46-116); Anion Gap 7 (5-15); BUN/Creatinine Ratio 10.9 (10.0-20.0); Blood Urea Nitrogen 20 mg/dL (9-23); Calcium 8.4 mg/dL (8.7-10.4); Carbon Dioxide 31 mmol/L (20-31); Chloride 102 mmol/L (98-107); Glucose 66 mg/dL (74-106); Potassium 3.5 mmol/L (3.5-5.1); Sodium 140 mmol/L (136-145)
[2024-07-09 07:02] LABS: Aspartate Aminotransferase 22 U/L (13-40); Bilirubin, Total 1.7 mg/dL (0.2-1.0); Total Protein 4.6 g/dL (5.7-8.2)
[2024-07-09 07:03] LABS: COVID19 ANTIGEN SOFIA FIA NEGATIVE (NEGATIVE); Rapid Influenza A Negative (Negative); Rapid Influenza B Negative (Negative)
[2024-07-09 07:40] LABS: % Iron Saturation 39.5 % (15-50)
[2024-07-09 07:51] LABS: Folate (Folic Acid) 44.75 ng/mL (>5.38)
--- NOTE | 2024-07-09 07:57 | DVH ---
RENAL ULTRASOUND CLINICAL HISTORY: CKD stage 4 TECHNIQUE: Multiple ultrasound images of the kidneys and bladder were obtained. COMPARISON: KIDNEY on DOS: 04/30/22 FINDINGS: The right kidney measures 6.8 cm in length. The left kidney measures 8.6 cm. Both kidneys appear echo genic with cortical thinning compatible with medical renal disease. The right kidney is asymmetricall y smaller than the left. There is a 9 mm calculus in the mid to lower pole of the right kidney and a 9 mm calculus in the midpole of the left kidney. There is no hydronephrosis. There is a Martinez catheter within the bladder which is decompressed. IMPRESSION: 1. Bilateral subcentimeter nonobstructive renal calculus measuring 9 mm. 2. Both kidneys appear echogenic with cortical thinning compatible with medical renal disease. The ri ght kidney is asymmetrically smaller than the left. HS:Y
[2024-07-09 08:26] LABS: Protein, Urine 34.3 mg/dL (1-14)
[2024-07-09 08:28] LABS: Creatinine, Urine 154.92 mg/dL (30.0-125.0); Urine Protein/Creatinine Ratio 0.22
[2024-07-09 10:22] LABS: Free T4 (Free Thyroxine) 0.85 ng/dL (0.89-1.76)
[2024-07-09 10:23] LABS: Free T3 2.35 pg/mL (2.3-4.2)
[2024-07-09] MEDS: PANTOPRAZOLE 40 MG/10 ML VIAL INJ IV SCH (10:28)
--- NOTE | 2024-07-09 11:54 | ECG ---
[facility] Test Date: 2024-07-08 Test Time: 12:55:09 Pat Name: BA GALLARDO Department: ED Room: [facility]3T B Gender: F Tennis Instructor: BHAVYA : 1945 Requested By: ABIDA STEWARD Order Number: [id number] Reading MD: Michel Sellers Measurements Intervals [place] Rate: 63 P: -44 [place]: 162 QRS: 57 QRSD: 126 T: -4 QT: 440 QTc: 451 Interpretive Statements Sinus rhythm Right bundle branch block Probable anteroseptal infarct, old Electronically Signed On 07-09-2024 17:44:48 PST by Michel Sellers Please click the below link to view image of tracing.
--- NOTE | 2024-07-09 13:19 | DVHPNRES ---
Progress Note Date Seen: Jul 09, 2024 Resident Creating Document: MARGO WILSON RESIDENT Medical Necessity Reason Pt with a Central, PICC or Fol: Yes The following are medically ne: Martinez Catheter Subjective Review of Systems Patient is a 78-year-old female with a past medical history of CKD stage 3,? CHF, osteoporosis on denosumab, rheumatoid arthritis on Simponi, hemorrhoids came to the ER after her labs reported severe anemia. Patient's daughter reports that went to 's office to follow up on labs as she being treated there for osteoporosis and rheumatoid arthritis where it was found that her hemoglobin was severely low after which patient was referred to the [facility]. Patient reported mild shortness of breath, no dizziness, no loss of consciousness, no palpitations, no fever, no nausea, vomiting, no diarrhea, no active rectal bleeding. As per daughter the patient has hemorrhoids and she bleeds from the hemorrhoids, but no active bleeding was noted in the last 24 hours. Patient underwent a colonoscopy as per the daughter 3 months ago at [facility]. Patient does not report of abdominal pain. Her last bowel movement was today and was unremarkable. Patient's hemoglobin on admission 5.9 mg/dL, hematocrit 18.8, BMP shows creatinine at 1.91, TSH 18.57, free T4 0.85, PT, INR elevated. Chest x-ray shows bilateral pleural effusion right greater than the left and right-sided opacity. X-ray ribs shows subacute versus chronic left rib fractures. Past medical history: As per HPI Past Surgical history: None significant Social history: Patient lives with daughter and denies smoking, alcohol, drug Home medication: Losartan, carvedilol, atorvastatin, hydrochlorothiazide, amiodarone PCP: Dr. Myra Sellers Review of systems Patient seen and examined at the bedside. Patient is lying comfortably in bed and is alert and oriented to time, place and person. Patient denies nausea, vomiting, abdominal pain, diarrhea, hematemesis, hematochezia. Patient's hemoglobin improved to 8.9 after 2 packed red blood cell units. Patient's retic count is elevated at 3.04. Patient reports mild shortness of breath but is saturating 99% on room air. Patient denies fever, chills, headache, chest pain, palpitations. Objective vital signs Vital Sign Date Time Temp Pulse Resp B/P (MAP) Pulse Ox O2 Delivery O2 Flow Rate FiO2 07/09/24 09:00 98.0 55 16 145/58 (87) 96 98.0 07/09/24 08:00 Room Air* 0 21 Total Intake and Output 07/08/24 07/08/24 07/09/24 15:00 23:00 07:00 Intake Total 300 ml 600 ml Output Total 1450 ml Balance 300 ml -850 ml medications Current Medications Medications Dose Ordered Sig/Lorie Route Start Time Stop Time Status Last Admin Dose Admin Ondansetron HCl 4 mg Q4HP PRN IV 07/08/24 22:00 Acetaminophen 650 mg Q6HP PRN PO 07/08/24 22:00 Morphine Sulfate 2 mg Q4HPRN PRN IV 07/08/24 22:00 Nitroglycerin 0.4 mg Q5MINP PRN SL 07/08/24 22:00 Morphine Sulfate 2 mg Q30M PRN IV 07/08/24 22:00 Pantoprazole Sodium 40 mg BID IV 07/09/24 10:00 07/09/24 10:28 40 MG Examination Physical Examination Gen - mild conjunctival pallor, no icterus, no cyanosis, no clubbing, no LAD, no edema . Skin - Patients skin is warm and dry with multiple bruises on both arms HEENT - normocephalic, atraumatic, dry mucous membranes. Neck - full ROM, no LAD, no JVD Pulmonary - decreased breath sounds in the bilateral lower lobes with bibasilar inspiratory crackles more on the right compared to the left , no wheezing, no stridor. cardiovascular - normal S1,S2 heard. S4 heard. no murmurs heard. peripheral pulses normal radial 2+, pedal 2+. capillary refill normal <2 secs. GI - soft abdomen without tenderness to palpation . no hepatospleenomegaly. Bowel sounds + Neurological - Patient is A/O X 3 . Bilateral upper extremity strength 4/5, bilateral lower extremity strength 4/5, no facial droop, normal speech, no tremor, no sensory deficiets. laboratory and microbiology Laboratory Tests 07/09/24 06:11 Test 07/09/24 06:11 Range/Units Serum Glucose 66 L 74-106 mg/dL Problem List/Assessment/Plan Problem List/Assessment/Plan Assessment and plan # acute lower GI bleed # h/o hemorrhoids associated with bleeding # Reported h/o ?colonic diverticulosis ?colonic polyps - GI consulted by Dr. Ludmila lopez, recommended patient to be started on clear liquid diets and monitor H&H - 2 units of packed red blood cells given hemoglobin improved from 5.9-->8.9 - retic count 3.0, lactate dehydrogenase within normal limits - PT elevated 13.8, INR 1.33 - no active bleeding - vitals stable - patient on telemetry - repeat H&H - patient on clear liquid diet tolerating well # suspected community-acquired pneumonia likely due to Gram +/- bacteria - chest x-ray shows small right and trace left effusion with bilateral lower lobe opacities - patient is started on ceftriaxone 1 g IV daily - currently on room air - ipratropium and albuterol med neb p.r.n. # history of congestive heart failure - bilateral lower lobe inspiratory crackles - pleural effusion bilateral seen with pulmonary vascular congestion - at home patient takes carvedilol 6.25 mg b.i.d., losartan 25 mg once daily, hydrochlorothiazide 12.5mg once daily - echocardiogram report pending - patient is started on losartan 25mg once daily - 1 dose of Lasix 40 mg IV given - carvedilol held given soft blood pressures and low heart rate. - patient continued on atorvastatin 20 mg # hypothyroidism - TSH elevated, free T4 decreased - patient is started on levothyroxine 25 mcg q.a.m. # SHAR prerenal on CKD stage 4 likely hemodynamically mediated due to acute blood loss - FENa 0.9 % - patient given 2 units of packed RBCs - Renal ultrasound shows right kidney 6.8 cm, left kidney 8.6 cm with bilateral cortical thinning. 9 mm calculus in the mid to lower pole of the right kidney and left kidney. - monitor electrolytes - IV fluids held due to right small and left trace pleural effusion # asymptomatic bacteriuria - urine leukocyte esterase negative, WBC 2 - urine bacteria culture pending # subacute versus chronic left rib fractures Goals of care discussed with the patient and daughter for over 25 minutes. Full code Plan discussed with Dr. Ortiz Plan discussed with: Patient, Daughter (ruthy) My Orders My Orders Orders - MARGO WILSON RESIDENT Procedure Category Date Status Time Kidney US 07/09/24 Resulted 06:58 Stool Occult Blood LAB 07/09/24 Logged 07:11 CC Plasma Assessment Blood Product Administration S: [id number] Date of Service: Jul 09, 2024 Billing Provider: MEE HINTON MD Common Visit Codes: [id number] INP/OBS CARE(HIGH) MARGO WILSON RESIDENT Jul 09, 2024 13:19 MEE HINTON MD Jul 11, 2024 09:18
--- NOTE | 2024-07-09 14:14 | DVH ---
EXAMINATION: XY RIBS BILATERAL INDICATION: rib fractures COMPARISON: XY CHEST PORTABLE on DOS: 07/08/24 TECHNIQUE: Single frontal chest radiograph FINDINGS: Frontal chest radiograph demonstrates no acute osseous or superficial soft tissue abnormalities. Suba cute versus chronic left rib fractures. The trachea is midline. The cardiac silhouette and mediastinu m are within normal limits. Small right and trace left pleural effusions with compressive atelectasis . A superimposed infectious process is not excluded. No pneumothorax. IMPRESSION: Frontal chest radiograph demonstrates no acute osseous or superficial soft tissue abnormalities. Subacute versus chronic left rib fractures. Small right and trace left pleural effusions with compressive atelectasis. A superimposed infectious process is not excluded. No pneumothorax.
[2024-07-09] MEDS: cefTRIAXone 1GM/50ML D5W 50 ML IV ONE (16:48)
[2024-07-09] MEDS: FUROSEMIDE 40 MG/4 ML VIAL IV ONE (16:49)
[2024-07-09] MEDS: LOSARTAN POTASSIUM 25 MG TAB PO ONE (16:50)
[2024-07-09 18:12] LABS: Hematocrit 28.8 % (36.0-46.0); Hemoglobin 9.1 g/dL (12.2-16.2)
[2024-07-09] MEDS ORDERED: IPRATROPIUM BROM 0.5 MG/2.5ML INH SOL NEB PRN (18:45)
[2024-07-09] MEDS ORDERED: ALBUTEROL SULF 2.5 MG/0.5ML(0.5%) NEB SOLN NEB PRN (18:45)
[2024-07-09] MEDS: ATORVASTATIN 20 MG TAB PO SCH (22:03)
[2024-07-10] VITALS (7 sets, daily range): BP systolic 110–121; BP diastolic 48–63; PULSE 51–70; RESP 15–20; TEMP 97.7–98.7; O2SAT 94–97
--- NOTE | 2024-07-10 02:28 | DVHSR ---
APPROVED REPORT EXAM: Two-dimensional and M-mode echocardiogram with Doppler and color Doppler. Blood Pressure: 123/53 mmHg INDICATION Dyspnea RISK FACTORS Height: 4'9", Weight: 116 DIMENSIONS LVDd5.3 (3.8-5.7cm)LA (2D)4.4 (1.9-4.0cm)Aortic Root3.0 (2.0-3.7cm) LVDs3.0 (2.5-4.0cm)LA (MM) (1.9-4.0cm)Aortic Cusp Exc1.6 (1.5-2.0cm) EF (%) 73.0 (55-70%)Rt. Atrium4.1 (1.9-4.0cm)Asc. Aorta3.1 cm IVSd0.8 (0.7-1.1cm)RV (D) (1.8-2.4cm) PWd1.0 (0.7-1.1cm) Mitral Valve MitralMitral Stenosis E wave1.35m/sMV Mean GR.2mmHg A wavem/sMV Peak GR.9mmHg E/A ratio0.02D MVAcm2 Aortic Valve Aortic ValveAortic Stenosis V11.20m/Antwon Mean GR.5mmHg V21.52m/Antwon Peak GR.9mmHg LVOT Diameter2.1 (1.8-2.4cm)Doppler AVA2.73cm2 AI P 1/2 Jnft616.23ms Pulmonic Valve V20.93m/s Tricuspid Valve TR Velocity2.62m/s [id number] Conclusion MODERATE DEGREE LVH AND MODERATE DEGREE LV DIASTOLIC DYSFUNCTION LV EJECTION FRACTION IS 70% HEAVILY CALCIFIED AORTIC LEAFLETS POSTERIOR MITRAL LEAFLET IS HEAVILY CALCIFIED LOW NORMAL OPENING OF AORTIC LEAFLETS MODERATELY DILATED LA MODERATE DEGREE MITRAL AND AORTIC REGURGITATION NO EFFUSION
[2024-07-10] MEDS: LEVOTHYROXINE SODIUM 25 MCG TAB PO SCH (05:52)
[2024-07-10 05:58] LABS: Basophils # (auto) 0 10 ^3/uL (0-0.2); Eosinophils % (auto) 3.2 % (0.0-7.0); Hemoglobin 9.5 g/dL (12.2-16.2); White Blood Cell 7.8 10^3/uL (4.4-10.8)
[2024-07-10 06:01] LABS: Basophils % (auto) 0.6 % (0.0-2.0); Eosinophils # (auto) 0.2 10 ^3/uL (0-0.8); Hematocrit 28.5 % (36.0-46.0); Lymphocytes # (auto) 1.8 10 ^3/uL (0.4-5.4); Lymphocytes % (auto) 22.4 % (10.0-50.0); Mean Corpuscular Hemoglobin 27.4 pg (28.0-32.0); Mean Corpuscular Hgb Conc. 33.2 g/dL (32.0-36.0); Mean Corpuscular Volume 82.6 fL (80.0-100.0); Monocytes % (auto) 12.4 % (0.0-12.0); Neutrophils # (auto) 4.8 10 ^3/uL (1.6-8.6); Neutrophils % (auto) 61.4 % (37.0-80.0); Nucleated Red Blood Cells % 0.5 %; Platelet Count (auto) 228 10^3/uL (140-450); Red Blood Cells 3.45 10^6/uL (4.0-5.20); Red Cell Distribution Width 17.1 % (11.8-14.3)
[2024-07-10 06:16] LABS: Alanine Aminotransferase 25 U/L (7-40); Alkaline Phosphatase 57 U/L (46-116); Anion Gap 7 (5-15); BUN/Creatinine Ratio 7.8 (10.0-20.0); Blood Urea Nitrogen 15 mg/dL (9-23); Calcium 8.3 mg/dL (8.7-10.4); Carbon Dioxide 31 mmol/L (20-31); Chloride 100 mmol/L (98-107); Glucose 69 mg/dL (74-106); Potassium 3.5 mmol/L (3.5-5.1); Sodium 138 mmol/L (136-145)
[2024-07-10 06:17] LABS: Albumin 2.7 g/dL (3.2-4.8); Aspartate Aminotransferase 28 U/L (13-40); Bilirubin, Total 0.8 mg/dL (0.2-1.0); Total Protein 4.7 g/dL (5.7-8.2)
[2024-07-10] MEDS: cefTRIAXone 1GM/50ML D5W 50 ML IV SCH (08:55)
[2024-07-10] MEDS: LOSARTAN POTASSIUM 25 MG TAB PO SCH (10:53)
[2024-07-10] MEDS ORDERED: DOXY1CAP57 PO (14:19)
[2024-07-10] MEDS ORDERED: LEVO25TA6 PO (14:19)
--- NOTE | 2024-07-10 16:36 | DVHINCON2 ---
Date of service: Jul 09, [address] AGUIAR Reason for Consultation SEVERE ANEMIA History of Present Illness This 78-year-old female presented with complaints of weakness and tiredness and was found to be severely anemic Patient has got history of heart failure rheumatoid arthritis osteoporosis chronic kidney problems. She attributes anemia to possible hemorrhoids. Also has got some mild lower abdominal pain as well as some right leg pain. Apparently she had a colonoscopy done about two years ago which was normal he also had an EGD sometime ago as per the patient does not remember but no abnormalities as per the patient the details of the reports are not available at this time. Patient has received 2 units of packed cells in the blood count is about eight more than eight now No gross GI bleeding since admission. The GI consult is because of the anemia. History of arthritis for which she takes immunological from Dr. Hannah earlier she comes here for that but she lives in [place] apparently Past Medical History History of rheumatoid arthritis on immunological for that osteoporosis and chronic kidney disease Past Surgical History None Family History: Patient reports no known family medical history. Family History Noncontributory Social History Denies smoking or drinking Allergies: Coded Allergies: Tramadol (Verified Allergy, Unknown, 12/09/22) Home Meds Active Scripts Doxycycline Monohydrate (Doxycycline Monohydrate) 100 Mg Cap, 1 CAP PO BID, #14 CAP 0 Refills Prov:MEE HINTON MD 07/10/24 Levothyroxine Sodium (Levothyroxine Sodium) 25 Mcg Tab, 1 TAB PO DAILY, #30 TAB 1 Refill Prov:MEE HINTON MD 07/10/24 Pantoprazole Sodium Sesquihydr (Protonix) 40 Mg Tab, 40 MG PO BID for 30 Days, #60 TAB Prov:DANUTA BARON MD 05/05/22 Reported Medications Hydrocodone-Acetaminophen (Hydrocodone Bitartrate/AC 5-325 mg) 1 Tab Tab, 1 TAB PO, TAB 07/09/24 Cholecalciferol (Vitamin D) 400 Unit Cap, 400 UNIT PO, CAP 07/09/24 Vitamin B12 (Vitamin B-12) 1,000 Mcg/1 Ml Ij, 1000 MCG PO, INJ 07/09/24 Escitalopram Oxalate (Lexapro) 5 Mg Tab, 1 TAB PO DAILY, #30 TAB 2 Refills 08/21/20 Golimumab (SIMPONI ARIA) 50 Mg/4 Ml Janis, 140 MG IV [id number], ML 08/21/20 Denosumab (Prolia) 60 Mg/Ml Janis, 60 MG SC [id number], ML 08/21/20 Folic Acid (Folic Acid) 1 Mg Tab, 2 TAB PO DAILY for 30 Days, MG 08/21/20 Prednisone (Prednisone) 5 Mg Tab, 5 MG PO DAILY for RHEUMATOID ARTHRITIS, TAB 08/21/20 Discontinued Reported Medications Hydrochlorothiazide (Hydrochlorothiazide) 12.5 Mg Cap, 12.5 MG PO DAILY for 30 Days, MG 08/21/20 Current Medications Current Medications Medications (Trade) Dose Ordered Sig/Lorie Route PRN Reason Start Time Stop Time Status Last Admin Ceftriaxone Sodium 50 ml @ 100 mls/hr DAILY@09 IV 07/10/24 09:00 Losartan Potassium (Cozaar Tablet) 25 mg DAILY PO 07/10/24 10:00 07/10/24 10:53 Atorvastatin Calcium (Lipitor) 20 mg HS PO 07/09/24 22:00 07/09/24 22:03 Levothyroxine Sodium (Synthroid Tablet) 25 mcg QAM@0600 PO 07/10/24 06:00 07/10/24 05:52 Albuterol (Ventolin Medneb) 2.5 mg Q6HPRN PRN NEB SHORTNESS OF BREATH 07/09/24 18:45 Ipratropium Mcdavid (Atrovent Medneb) 0.5 mg Q4HPRN PRN NEB SHORTNESS OF BREATH 07/09/24 18:45 Review of Systems Noncontributory Vital Signs Vital Signs Date Time Temp Pulse Resp B/P (MAP) Pulse Ox O2 Delivery O2 Flow Rate FiO2 07/10/24 15:49 98.6 70 15 95 07/10/24 13:00 116/63 (80) 07/10/24 12:45 Room Air* 0 21 Physical Exam Originally built and nourished female in no acute distress HEENT examination mild pallor no icterus Neck is supple no lymphadenopathy no thyroid Chest bilaterally symmetric Lungs are clear Abdomen soft no tenderness no rigidity no guarding no masses Bowel sounds normal Extremities no edema Neuro grossly intact Labs/Diagnostic Data Labs Test 07/10/24 05:15 07/09/24 06:11 07/09/24 05:54 07/08/24 18:13 Range/Units White Blood Count 7.8 4.4-10.8 10^3/uL Red Blood Count 3.45 L 4.0-5.20 10^6/uL Hemoglobin 9.5 L 12.2-16.2 g/dL Hematocrit 28.5 L 36.0-46.0 % Mean Corpuscular Volume 82.6 80.0-100.0 fL Mean Corpuscular Hemoglobin 27.4 L 28.0-32.0 pg Mean Corpuscular Hemoglobin Concent 33.2 32.0-36.0 g/dL Red Cell Distribution Width 17.1 H 11.8-14.3 % Platelet Count 228 140-450 10^3/uL Mean Platelet Volume 7.8 6.9-10.8 fL Neutrophils (%) (Auto) 61.4 37.0-80.0 % Lymphocytes (%) (Auto) 22.4 10.0-50.0 % Monocytes (%) (Auto) 12.4 H 0.0-12.0 % Eosinophils (%) (Auto) 3.2 0.0-7.0 % Basophils (%) (Auto) 0.6 0.0-2.0 % Neutrophils # (Auto) 4.8 1.6-8.6 10 ^3/uL Lymphocytes # (Auto) 1.8 0.4-5.4 10 ^3/uL Monocytes # (Auto) 1.0 0-1.3 10 ^3/uL Eosinophils # (Auto) 0.2 0-0.8 10 ^3/uL Basophils # (Auto) 0 0-0.2 10 ^3/uL Nucleated Red Blood Cells 0.5 % Sodium Level 138 136-145 mmol/L Potassium Level 3.5 3.5-5.1 mmol/L Chloride Level 100 98-107 mmol/L Carbon Dioxide Level 31 20-31 mmol/L Anion Gap 7 5-15 Blood Urea Nitrogen 15 9-23 mg/dL Creatinine 1.93 H 0.550-1.02 mg/dL Glomerular Filtration Rate Calc 26 >90 mL/min BUN/Creatinine Ratio 7.8 L 10.0-20.0 Serum Glucose 69 L 74-106 mg/dL Calcium Level 8.3 L 8.7-10.4 mg/dL Total Bilirubin 0.8 0.2-1.0 mg/dL Aspartate Amino Transferase (AST) 28 13-40 U/L Alanine Aminotransferase (ALT) 25 7-40 U/L Alkaline Phosphatase 57 46-116 U/L Total Protein 4.7 L 5.7-8.2 g/dL Albumin 2.7 L 3.2-4.8 g/dL Reticulocyte Count (auto) 3.04 H 0.5-1.5 % Prothrombin Time 13.8 H 9.3-11.8 sec Prothrombin Time INR 1.33 H 0.9-1.15 Activated Partial Thromboplast Time 25.6 24.5-34.5 SEC Iron Level 104 50-170 ug/dL Total Iron Binding Capacity 263 250-425 ug/dL Percent Iron Saturation 39.5 15-50 % Ferritin 72.2 10-291 ng/mL Lactate Dehydrogenase 223 120-246 U/L B-Type Natriuretic Peptide 606.94 0-100 pg/mL Vitamin B12 Level > 4000 H 211-911 pg/mL Folic Acid 44.75 >5.38 ng/mL Thyroid Stimulating Hormone (TSH) 18.57 H 0.55-4.78 uIU/mL Free Thyroxine (T4) Calculated 0.85 L 0.89-1.76 ng/dL Free Triiodothyronine (T3) pg/mL 2.35 2.3-4.2 pg/mL Influenza Type A Antigen Negative Negative Influenza Type B Antigen Negative Negative SARS-CoV-2 Antigen (Rapid) Negative NEGATIVE Urine Color Yellow Yellow Urine Clarity Clear Clear Urine pH 5.5 5.0-9.0 Urine Specific [place] 1.019 1.001-1.035 Urine Protein Trace H Negative Urine Ketones Negative Negative Urine Blood Trace H Negative /uL Urine Nitrite Negative Negative Urine Bilirubin Negative Negative Urine Urobilinogen Normal Negative mg/dL Urine Leukocyte Esterase Negative Negative /uL Urine RBC 9 0 - 4 /hpf Urine WBC 2 0 - 5 /hpf Urine Squamous Epithelial Cells Few <5 /hpf Urine Bacteria Few H None Seen /hpf Urine Mucus Few None Seen Urine Creatinine 154.92 H 30.0-125.0 mg/dL Urine Protein/Creatinine Ratio 0.22 Urine Sodium 49 40-220 mmol/L Urine Glucose Normal Normal mg/dL Urine Total Protein 34.3 H 1-14 mg/dL Microbiology Date/Time Source Procedure Growth Status 07/08/24 18:13 Urine - Catheterized Urine Culture - Preliminary Resulted Assessment 78-year-old female with anemia no gross GI bleeding at this time patient had some occasional some dark possible diverticular bleeding or heat or hemorrhoids in the past. She had a colonoscopy which showed diverticulosis apparently there was unremarkable no evident portion also apparently had an EGD done which was unremarkable as per the daughter. The details of the reports are not available at this time. This no gross GI bleeding since admission. Denies any hematemesis melena. Hemoglobin was very low 5.9 for which she received 2 units of packed cells Clinical impression is GI bleeding undetermined etiology possibility of anemia from diverticular disease or hemorrhoids etc. can not be excluded Me also could be from chronic disease from the arthritis and the medications the including Simponi etc. she takes The daughter in the family does not want any endoscopic workup at this time since it is no GI bleeding than indication for GI endoscopic at this time. Plan/Recommendation We will recommend to monitor the hemoglobin closely and follow closely and if symptoms persist may need for further evaluation as an outpatient Patient is eager to go home and can be discharge if hemoglobin is stable for outpatient workup as necessary Thank you Dr. Keys Plan discussed with: Patient EVELIA KEYS MD Jul 10, 2024 16:36
--- NOTE | 2024-07-10 20:54 | DVHDSRES ---
Discharge Summary Date of Admission Resident Creating Document: MARGO WILSON RESIDENT Jul 08, 2024 at 21:58 Date of Discharge: Jul 10, 2024 Admitting Diagnosis #Severe anemia status post transfusion likely chronic and multifactorial likely due to hard to treat hemorrhoids ? Diverticular bleeding ? Malignancy #Acute onset right leg pain and back pain likely due to osteoporosis ? Sciatica #Fever and mild shortness of breath likely due to systemic response secondary to severe anemia or underlying heart failure BNP >1000 #left pleural effusion #Chronic kidney disease stage IV #Chronic back pain due to chronic compression fracture Wounds: no wounds Labs/Diagnostic Data: Laboratory Results Test 07/10/24 05:15 07/09/24 06:11 07/09/24 05:54 07/08/24 18:13 White Blood Count 7.8 10^3/uL (4.4-10.8) Red Blood Count 3.45 10^6/uL (4.0-5.20) Hemoglobin 9.5 g/dL (12.2-16.2) Hematocrit 28.5 % (36.0-46.0) Mean Corpuscular Volume 82.6 fL (80.0-100.0) Mean Corpuscular Hemoglobin 27.4 pg (28.0-32.0) Mean Corpuscular Hemoglobin Concent 33.2 g/dL (32.0-36.0) Red Cell Distribution Width 17.1 % (11.8-14.3) Platelet Count 228 10^3/uL (140-450) Mean Platelet Volume 7.8 fL (6.9-10.8) Neutrophils (%) (Auto) 61.4 % (37.0-80.0) Lymphocytes (%) (Auto) 22.4 % (10.0-50.0) Monocytes (%) (Auto) 12.4 % (0.0-12.0) Eosinophils (%) (Auto) 3.2 % (0.0-7.0) Basophils (%) (Auto) 0.6 % (0.0-2.0) Neutrophils # (Auto) 4.8 10 ^3/uL (1.6-8.6) Lymphocytes # (Auto) 1.8 10 ^3/uL (0.4-5.4) Monocytes # (Auto) 1.0 10 ^3/uL (0-1.3) Eosinophils # (Auto) 0.2 10 ^3/uL (0-0.8) Basophils # (Auto) 0 10 ^3/uL (0-0.2) Nucleated Red Blood Cells 0.5 % Sodium Level 138 mmol/L (136-145) Potassium Level 3.5 mmol/L (3.5-5.1) Chloride Level 100 mmol/L (98-107) Carbon Dioxide Level 31 mmol/L (20-31) Anion Gap 7 (5-15) Blood Urea Nitrogen 15 mg/dL (9-23) Creatinine 1.93 mg/dL (0.550-1.02) Glomerular Filtration Rate Calc 26 mL/min (>90) BUN/Creatinine Ratio 7.8 (10.0-20.0) Serum Glucose 69 mg/dL (74-106) Calcium Level 8.3 mg/dL (8.7-10.4) Total Bilirubin 0.8 mg/dL (0.2-1.0) Aspartate Amino Transferase (AST) 28 U/L (13-40) Alanine Aminotransferase (ALT) 25 U/L (7-40) Alkaline Phosphatase 57 U/L (46-116) Total Protein 4.7 g/dL (5.7-8.2) Albumin 2.7 g/dL (3.2-4.8) Reticulocyte Count (auto) 3.04 % (0.5-1.5) Prothrombin Time 13.8 sec (9.3-11.8) Prothrombin Time INR 1.33 (0.9-1.15) Activated Partial Thromboplast Time 25.6 SEC (24.5-34.5) Iron Level 104 ug/dL (50-170) Total Iron Binding Capacity 263 ug/dL (250-425) Percent Iron Saturation 39.5 % (15-50) Ferritin 72.2 ng/mL (10-291) Lactate Dehydrogenase 223 U/L (120-246) B-Type Natriuretic Peptide 606.94 pg/mL (0-100) Vitamin B12 Level > 4000 pg/mL (211-911) Folic Acid 44.75 ng/mL (>5.38) Thyroid Stimulating Hormone (TSH) 18.57 uIU/mL (0.55-4.78) Free Thyroxine (T4) Calculated 0.85 ng/dL (0.89-1.76) Free Triiodothyronine (T3) pg/mL 2.35 pg/mL (2.3-4.2) Influenza Type A Antigen Negative (Negative) Influenza Type B Antigen Negative (Negative) SARS-CoV-2 Antigen (Rapid) Negative (NEGATIVE) Urine Color Yellow (Yellow) Urine Clarity Clear (Clear) Urine pH 5.5 (5.0-9.0) Urine Specific Vincent 1.019 (1.001-1.035) Urine Protein Trace (Negative) Urine Ketones Negative (Negative) Urine Blood Trace /uL (Negative) Urine Nitrite Negative (Negative) Urine Bilirubin Negative (Negative) Urine Urobilinogen Normal mg/dL (Negative) Urine Leukocyte Esterase Negative /uL (Negative) Urine RBC 9 /hpf (0 - 4) Urine WBC 2 /hpf (0 - 5) Urine Squamous Epithelial Cells Few /hpf (<5) Urine Bacteria Few /hpf (None Seen) Urine Mucus Few (None Seen) Urine Creatinine 154.92 mg/dL (30.0-125.0) Urine Protein/Creatinine Ratio 0.22 Urine Sodium 49 mmol/L (40-220) Urine Glucose Normal mg/dL (Normal) Urine Total Protein 34.3 mg/dL (1-14) Other Laboratory Tests 07/10/24 05:15 Brief Hx & Hospital Course: Patient is a 78-year-old female with a past medical history of CKD stage 3,? CHF, osteoporosis on denosumab, rheumatoid arthritis on Simponi, hemorrhoids came to the ER after her labs reported severe anemia. Patient's daughter reports that went to 's office to follow up on labs as she being treated there for osteoporosis and rheumatoid arthritis where it was found that her hemoglobin was severely low after which patient was referred to the [facility]. Patient reported mild shortness of breath, no dizziness, no loss of consciousness, no palpitations, no fever, no nausea, vomiting, no diarrhea, no active rectal bleeding. As per daughter the patient has hemorrhoids and she bleeds from the hemorrhoids, but no active bleeding was noted in the last 24 hours. Patient underwent a colonoscopy as per the daughter 3 months ago at [facility]. Patient does not report of abdominal pain. Her last bowel movement was today and was unremarkable. Patient's hemoglobin on admission 5.9 mg/dL, hematocrit 18.8, BMP shows creatinine at 1.91, TSH 18.57, free T4 0.85, PT, INR elevated. Chest x-ray shows bilateral pleural effusion right greater than the left and right-sided opacity. X-ray ribs shows subacute versus chronic left rib fractures. Hospital course Patient was given 2 units of packed red blood cells which increased her hemoglobin to 8.9 mg/dL. Patient denied any active GI bleeding, no hematochezia no hematemesis. Patient's hemoglobin and hematocrit remained stable after transfusion. Patient has a history of heart failure with a echocardiogram reporting LVEF 70% with moderate LVH and moderate LV diastolic dysfunction. Patient had bilateral pleural effusion on chest x-ray right greater than the left for which she was given furosemide 40 mg IV following which he reported improved breathing. Patient had mild SHAR on CKD stage 4 likely prerenal with FeNa <1% due to acute blood loss which was managed with blood transfusion. Patient had a TSH of 18.67 uIU/ml with a free T4 0.85 following which patient was started on 25 mcg levothyroxine q.a.m. patient is blood pressure in the hospital were in the low 120s and the 110s following which the dose of losartan was decreased to 50 mg daily and hydrochlorothiazide was stopped and patient was advised to follow up with the PCP for further management of her blood pressure medication. Patient was advised to discontinue carvedilol she had bradycardia in the hospital with a heart rate in 50-65, sinus bradycardia on the tele monitor. GI were consulted who recommended the patient to undergo colonoscopy but the patient's family refused as the reported that she recently got a colonoscopy done at [facility] 3 months ago. Patient H&H were stable and were cleared from discharge from GI and recommended closely follow hemoglobin and if symptom persisted would need further evaluation as outpatient. Patient discharged in stable condition to home advised to follow up with the PCP in 1 week Consults/Reason for consult GI consultation for suspected lower GI bleed Operations or Procedures Chest X ray showing Frontal chest radiograph demonstrates no acute osseous or superficial soft tissue abnormalities. Subacute versus chronic left rib fractures. The trachea is midline. The cardiac silhouette and mediastinum are within normal limits. Small right and trace left pleural effusions with compressive atelectasis. A superimposed infectious process is not excluded. No pneumothorax. renal ultrasound showing Bilateral subcentimeter nonobstructive renal calculus measuring 9 mm. Both kidneys appear echogenic with cortical thinning compatible with medical renal disease. The right kidney is asymmetrically smaller than the left. ribs with chest x-ray Frontal chest radiograph demonstrates no acute osseous or superficial soft tissue abnormalities. Subacute versus chronic left rib fractures. Condition at Discharge: Good Final Diagnosis/Problems List # acute lower GI bleed # h/o hemorrhoids associated with bleeding # Reported h/o ?colonic diverticulosis ?colonic polyps # suspected community-acquired pneumonia likely due to Gram +/- bacteria # history of congestive heart failure # hypothyroidism # SHAR prerenal on CKD stage 4 likely hemodynamically mediated due to acute blood loss # asymptomatic bacteriuria # subacute versus chronic left rib fractures Discharge Disposition: Home Discharge Instruct/Medications Diet: Regular Diet comment: continue on full liquid diet for 2-3 days and advance as tolerated Activity: No Restrictions, As Tolerated Follow Up/Referral: Follow up with the PCP in one week Medications: Doxycycline 100 mg BID X 5 days Levothyroxine 25mcg Qam Continue home medications except hydrochlorthiazide and carvedilol given low blood pressure and bradycardia , needs close follow up with PCP for further medication management. Discharge Statement: "Patient was advised to return to the ER or call 911 if any headaches, dizziness, shortness of breath, chest pain, abdominal pain, bleeding, fevers, or worsening of medical condition. Patient was counseled about treatment plan, medications, possible side effects, patientverbalized understanding. All questions were answered to the best of my ability. This discharge took greater then 30 minutes in planning, reviewing documentation, counseling the patient, and discussing with other team members." ASSESSMENT ASSESSMENT Assessment # acute lower GI bleed # h/o hemorrhoids associated with bleeding # Reported h/o ?colonic diverticulosis ?colonic polyps # suspected community-acquired pneumonia likely due to Gram +/- bacteria # history of congestive heart failure # hypothyroidism # SHAR prerenal on CKD stage 4 likely hemodynamically mediated due to acute blood loss # asymptomatic bacteriuria # subacute versus chronic left rib fractures Date of Service: Jul 10, 2024 Billing Provider: MEE HINTON MD Common Visit Codes: 40620-IMW/OBS DISCH DAY >30min MARGO WILSON RESIDENT Jul 10, 2024 20:54 MEE HINTON MD Jul 11, 2024 09:13
== END 2024-07-10 16:45 | disposition home or self-care (01) | DRG 393 ==
LOC: ER 12:29 → TELE 21:58 → TELE-WESTW 22:01
PROVIDERS: ADMIT Student in an Organized Health Care Education/Training Program; ATTEND Student in an Organized Health Care Education/Training Program
PROC: 30233N1 Transfusion of Nonautologous Red Blood Cells into Peripheral Vein, Percutaneous Approach (ICD-10-PCS; principal; 2024-07-08)
DX: K64.9 Unspecified hemorrhoids (principal); J15.69 Pneumonia due to other Gram-negative bacteria; J15.9 Unspecified bacterial pneumonia; D62 Acute posthemorrhagic anemia; S22.42XA Multiple fractures of ribs, left side, initial encounter for closed fracture; N18.4 Chronic kidney disease, stage 4 (severe); I13.0 Hypertensive heart and chronic kidney disease with heart failure and stage 1 through stage 4 chronic kidney disease, or unspecified chronic kidney disease; K57.30 Diverticulosis of large intestine without perforation or abscess without bleeding; K63.5 Polyp of colon; E87.70 Fluid overload, unspecified; E88.09 Other disorders of plasma-protein metabolism, not elsewhere classified; N28.9 Disorder of kidney and ureter, unspecified; M81.0 Age-related osteoporosis without current pathological fracture; M06.9 Rheumatoid arthritis, unspecified; G89.29 Other chronic pain; E03.9 Hypothyroidism, unspecified; I50.9 Heart failure, unspecified; Z79.899 Other long term (current) drug therapy; X58.XXXA Exposure to other specified factors, initial encounter; Y93.89 Activity, other specified; Y92.89 Other specified places as the place of occurrence of the external cause; Y99.8 Other external cause status
CPT/HCPCS: 36415; 71045; 71111; 76775; 80053; 81001; 82570; 82607; 82728; 82746; 83540; 83550; 83615; 83880; 84156; 84300; 84439; 84443; 84481; 85014; 85018; 85025; 85045; 85610; 85730; 86850; 86900; 86901; 86920; 86922; 87086; 87426; 87804; 93005; 93306; 96361; 96365; 96376; 99291; G0378; J2470